=== PATIENT | male | born 1950 | race Caucasian/White ===

== ENCOUNTER 2018-02-02 09:32 | Emergency (ER) | payer MEDICARE, OTHER ==
[2018-02-02 09:43] VITALS: BP 150/88; PULSE 65; RESP 18; TEMP 98.1
[2018-02-02] MEDS ORDERED: GELATIN SPONGE,ABSORB (SMALL) 1 EACH SPONGE TOPICAL STA (10:08)
--- NOTE | 2018-02-02 10:26 | ED ---
Wound/Laceration HPI - General Source: patient, RN notes reviewed Mode of arrival: ambulatory Limitations: no limitations <Jp Cardona - Last Filed: 02/02/18 10:20> <Rolo Jain - Last Filed: 02/02/18 10:37> - General Chief Complaint: Wound/Laceration Stated Complaint: finger lac on tablesaw Time Seen by Provider: 02/02/18 10:05 - History of Present Illness Initial Comments: This a 67-year-old male presents emergency Department chief complaint of laceration to his right hand third and fourth digit. Patient states that he was using a table saw and states that he grabbed a board causing a laceration to his finger. He states that his tetanus is up-to-date within last 5 years. He states that there is no skin noted on his third digit. Patient has full range of motion no paresthesias. (Jp Cardona) - Related Data Previous Rx's Medication Instructions Recorded Cephalexin [Keflex] 500 mg PO Q6HR #28 cap 02/02/18 Allergies Allergy/AdvReac Type Severity Reaction Status Date / Time No Known Allergies Allergy Verified 02/02/18 10:03 Review of Systems ROS Other: All systems not noted in ROS Statement are negative. <Jp Cardona - Last Filed: 02/02/18 10:20> ROS Other: All systems not noted in ROS Statement are negative. <Rolo Jain - Last Filed: 02/02/18 10:37> ROS Statement: Those systems with pertinent positive or pertinent negative responses have been documented in the HPI. Past Medical History Past Medical History: No Reported History History of Any Multi-Drug Resistant Organisms: None Reported Past Surgical History: Back Surgery Past Psychological History: No Psychological Hx Reported Smoking Status: Never smoker Past Alcohol Use History: Rare Past Drug Use History: None Reported <Jp Cardona - Last Filed: 02/02/18 10:20> General Exam Limitations: no limitations General appearance: alert, in no apparent distress Head exam: Present: atraumatic, normocephalic, normal inspection Respiratory exam: Present: normal lung sounds bilaterally. Absent: respiratory distress, wheezes, rales, rhonchi, stridor Cardiovascular Exam: Present: regular rate, normal rhythm, normal heart sounds. Absent: systolic murmur, diastolic murmur, rubs, gallop, clicks Extremities exam: Present: other (Right hand third digit there is an angulated avulsion laceration over the distal tip that does partially involving the nail no exposed bone no active bleeding, fourth digit there is 2 superficial lacerations) Skin exam: Present: warm, dry <Jp Cardona - Last Filed: 02/02/18 10:20> Course <Jp Cardona - Last Filed: 02/02/18 10:20> <Rolo Jain - Last Filed: 02/02/18 10:37> Vital Signs 02/02/18 09:40 Temperature 98.1 F Pulse Rate 65 Respiratory 18 Rate Blood Pressure 150/88 O2 Sat by Pulse 99 Oximetry - Reevaluation(s) Reevaluation #1: 02/02/18 10:37 PG supervision: I did personally do a [id number] evaluation the patient. I did assess the wound I do agree with the assessment and plan. I did review the imaging. There is evidence of injury to the right middle finger secondary to a table saw injury. (Rolo Jain) Medical Decision Making <Jp Cardona - Last Filed: 02/02/18 10:20> <Rolo Jain - Last Filed: 02/02/18 10:37> - Medical Decision Making 67-year-old male present emergency from for right hand laceration. He has an avulsion of the skin and distal portion of his finger there is no laceration to be repaired. X-ray was obtained. Gelfoam was applied patient was started on antibiotics and follow-up with return parameters were discussed. (Jp Cardona) Disposition Is patient prescribed a controlled substance at d/c from ED?: No Time of Disposition: 10:26 <Jp Cardona - Last Filed: 02/02/18 10:20> <Rolo Jain - Last Filed: 02/02/18 10:37> Clinical Impression: Fingertip avulsion, Finger laceration Disposition: HOME SELF-CARE Condition: Stable Instructions: Finger Laceration (ED), Skin Avulsion (ED) Additional Instructions: Please return to the Emergency Department if symptoms worsen or any other concerns. Prescriptions: Cephalexin [Keflex] 500 mg PO Q6HR #28 cap Referrals: Dennis Argueta MD [Primary Care Provider] - 1-2 days Jarred Spicer DO [Doctor of Osteopathic Medicine] - 1-2 days
[2018-02-02] MEDS ORDERED: ceFAZolin 1,000 MG VIAL IM STA (10:27)
--- NOTE | 2018-02-02 10:33 | XR ---
EXAMINATION TYPE: XR finger RT DATE OF EXAM: 02/02/2018 COMPARISON: NONE HISTORY: 67-year-old male with pain after table saw cut TECHNIQUE: 3 views coned-down right middle finger FINDINGS: There is a table saw injury to the radial sided tip of the middle finger with associated obliquely or iented amputation of the radial sided and distal tuft of the distal phalanx. Tiny more fistula bone f ragments are present in the vicinity. Additional small laceration at the tip of the fourth digit. Und erlying osteoarthritic changes within the DIP and to a lesser extent within the PIP joints. IMPRESSION: Laceration to the tip of the third digit with macerated distal aspect of the third phalangeal tuft se condary to table saw cut. Small laceration to the tip of the fourth digit as well. Underlying osteoarthritic changes.
== END 2018-02-02 11:04 | disposition home or self-care (01) ==
LOC: EC 09:32
DX: S61.212A Laceration without foreign body of right middle finger without damage to nail, initial encounter (principal); S61.214A Laceration without foreign body of right ring finger without damage to nail, initial encounter; W31.2XXA Contact with powered woodworking and forming machines, initial encounter; Y93.89 Activity, other specified
CPT/HCPCS: 73140; 99283; 96372; J0690

== ENCOUNTER 2019-09-26 06:02 | Emergency (ER) | payer MEDICARE, OTHER ==
[2019-09-26 06:10] VITALS: RESP 18
[2019-09-26] MEDS ORDERED: SODIUM CHLORIDE 0.9% 1,000 ML IV STA (06:11)
[2019-09-26] MEDS ORDERED: ONDANSETRON 4 MG/2 ML VIAL IVP STA (06:11)
[2019-09-26] MEDS ORDERED: SODIUM CHLORIDE 0.9% 500 ML 500 ML IV STA (06:11)
[2019-09-26] MEDS ORDERED: KETOROLAC 30 MG/ML 1 ML VIAL IVP STA (06:12)
--- NOTE | 2019-09-26 06:18 | ED ---
General Adult HPI - General Chief complaint: Back Pain/Injury Stated complaint: Possible kidney stone Time Seen by Provider: 09/26/19 06:10 Source: patient, RN notes reviewed Mode of arrival: ambulatory Limitations: no limitations - History of Present Illness Initial comments: This a 68-year-old male presents emergency Department chief complaint of sudden onset right flank pain. Patient states started around midnight he states that he really makes the pain feel better or worse at this time. He states that he cannot get comfortable. Patient states that he's had some nausea and vomiting secondary to intense pain. Patient denies any change in bowel habits no difficulty urinating no hematuria. Patient has no history kidney stones no prior abdominal surgeries. Patient unable take any current pain secondary to nausea and vomiting. - Related Data Previous Rx's Medication Instructions Recorded Cephalexin [Keflex] 500 mg PO Q6HR #28 cap 02/02/18 Ibuprofen [Motrin] 600 mg PO Q8HR PRN #20 tab 09/26/19 Ondansetron Odt [Zofran Odt] 4 mg PO Q8HR PRN #10 tab 09/26/19 Tamsulosin [Flomax] 0.4 mg PO DAILY #7 cap 09/26/19 Allergies Allergy/AdvReac Type Severity Reaction Status Date / Time No Known Allergies Allergy Verified 02/02/18 10:03 Review of Systems ROS Statement: Those systems with pertinent positive or pertinent negative responses have been documented in the HPI. ROS Other: All systems not noted in ROS Statement are negative. Past Medical History Past Medical History: No Reported History History of Any Multi-Drug Resistant Organisms: None Reported Past Surgical History: Back Surgery Additional Past Surgical History / Comment(s): Knee surgery. Past Psychological History: No Psychological Hx Reported Smoking Status: Never smoker Past Alcohol Use History: Rare Past Drug Use History: None Reported General Exam Limitations: no limitations General appearance: alert, in no apparent distress Head exam: Present: atraumatic, normocephalic, normal inspection Respiratory exam: Present: normal lung sounds bilaterally. Absent: respiratory distress, wheezes, rales, rhonchi, stridor Cardiovascular Exam: Present: regular rate, normal rhythm, normal heart sounds. Absent: systolic murmur, diastolic murmur, rubs, gallop, clicks GI/Abdominal exam: Present: soft, normal bowel sounds. Absent: distended, tenderness (no change in reported pain on the right with palpation), guarding, rebound, rigid Back exam: Absent: CVA tenderness (R), CVA tenderness (L) Course Vital Signs 09/26/19 06:06 Temperature 98 F Pulse Rate 68 Respiratory 18 Rate Blood Pressure 145/85 O2 Sat by Pulse 97 Oximetry Medical Decision Making - Medical Decision Making 68-year-old male presented for sudden onset right flank pain. Patient has obstructive 6 mm right ureteral calculi. Patient pain is improved at this time there is no evidence of urinary tract infection. Patient be discharged advised to follow-up with urology. Return parameters were discussed. - Lab Data Result diagrams: 09/26/19 06:21 09/26/19 06:21 Lab Results 09/26/19 09/26/19 09/26/19 Range/Units 06:21 06:21 08:10 WBC 13.8 H (3.8-10.6) k/uL RBC 5.27 (4.30-5.90) m/uL Hgb 15.6 (13.0-17.5) gm/dL Hct 45.8 (39.0-53.0) % MCV 86.9 (80.0-100.0) fL MCH 29.6 (25.0-35.0) pg MCHC 34.0 (31.0-37.0) g/dL RDW 13.4 (11.5-15.5) % Plt Count 220 (150-450) k/uL Neutrophils % 90 % Lymphocytes % 5 % Monocytes % 3 % Eosinophils % 1 % Basophils % 0 % Neutrophils # 12.4 H (1.3-7.7) k/uL Lymphocytes # 0.7 L (1.0-4.8) k/uL Monocytes # 0.4 (0-1.0) k/uL Eosinophils # 0.1 (0-0.7) k/uL Basophils # 0.0 (0-0.2) k/uL Sodium 137 (137-145) mmol/L Potassium 4.4 (3.5-5.1) mmol/L Chloride 105 (98-107) mmol/L Carbon Dioxide 22 (22-30) mmol/L Anion Gap 10 mmol/L BUN 27 H (9-20) mg/dL Creatinine 1.20 (0.66-1.25) mg/dL Est GFR (CKD-EPI)AfAm 73 (>60 ml/min/1.73 sqM) Est GFR (CKD-EPI)NonAf 63 (>60 ml/min/1.73 sqM) Glucose 138 H (74-99) mg/dL Calcium 9.8 (8.4-10.2) mg/dL Total Bilirubin 0.8 (0.2-1.3) mg/dL AST 25 (17-59) U/L ALT 25 (4-49) U/L Alkaline Phosphatase 84 (38-126) U/L Total Protein 7.9 (6.3-8.2) g/dL Albumin 4.6 (3.5-5.0) g/dL Amylase 77 (30-110) U/L Lipase 71 (23-300) U/L Urine Color Yellow Urine Appearance Clear (Clear) Urine pH 6.0 (5.0-8.0) Ur Specific [place] 1.026 (1.001-1.035) Urine Protein Negative (Negative) Urine Glucose (UA) Negative (Negative) Urine Ketones Negative (Negative) Urine Blood Moderate H (Negative) Urine Nitrite Negative (Negative) Urine Bilirubin Negative (Negative) Urine Urobilinogen <2.0 (<2.0) mg/dL Ur Leukocyte Esterase Negative (Negative) Urine RBC 22 H (0-5) /hpf Urine WBC 4 (0-5) /hpf Hyaline Casts 4 H (0-2) /lpf Urine Mucus Rare H (None) /hpf Disposition Clinical Impression: Right ureteral calculus Disposition: HOME SELF-CARE Condition: Stable Instructions (If sedation given, give patient instructions): Kidney Stones (ED) Additional Instructions: Please return to the Emergency Department if symptoms worsen or any other concerns. Prescriptions: Tamsulosin [Flomax] 0.4 mg PO DAILY #7 cap Ibuprofen [Motrin] 600 mg PO Q8HR PRN #20 tab PRN Reason: Pain Ondansetron Odt [Zofran Odt] 4 mg PO Q8HR PRN #10 tab PRN Reason: Nausea Is patient prescribed a controlled substance at d/c from ED?: No Referrals: Dennis Argueta MD [Primary Care Provider] - 1-2 days Pedro Garza MD [STAFF PHYSICIAN] - 1-2 days Time of Disposition: 08:40
[2019-09-26 06:25] LABS: Basophils % (A) 0 %; Eosinophils # (A) 0.1 k/uL (0-0.7); Eosinophils % (A) 1 %; HCT 45.8 % (39.0-53.0); HGB 15.6 gm/dL (13.0-17.5); Lymphocytes # (A) 0.7 k/uL (1.0-4.8); Lymphocytes % (A) 5 %; MCH 29.6 pg (25.0-35.0); MCV 86.9 fL (80.0-100.0); Mean Platelet Volume 7.4; Monocytes # (A) 0.4 k/uL (0-1.0); Monocytes % (A) 3 %; Neutrophils # (A) 12.4 k/uL (1.3-7.7); Neutrophils % (A) 90 %; Platelet Count 220 k/uL (150-450); RBC 5.27 m/uL (4.30-5.90); RDW 13.4 % (11.5-15.5); WBC 13.8 k/uL (3.8-10.6)
[2019-09-26 06:34] LABS: Albumin 4.6 g/dL (3.5-5.0); Calcium 9.8 mg/dL (8.4-10.2); Potassium 4.4 mmol/L (3.5-5.1); Total Bilirubin 0.8 mg/dL (0.2-1.3); Total Protein 7.9 g/dL (6.3-8.2)
[2019-09-26] MEDS ORDERED: HYDROmorphone 0.5 MG/0.5 ML SYRINGE IVP STA (06:37)
[2019-09-26] MEDS ORDERED: TAMSULOSIN 0.4 MG CAP.ER.24H PO STA (06:54)
--- NOTE | 2019-09-26 07:43 | CT ---
EXAM: CT Abdomen and Pelvis Without Intravenous Contrast CLINICAL HISTORY: ITS.REASON CT Reason: flank pain, kidney stone suspected TECHNIQUE: Axial computed tomography images of the abdomen and pelvis without intravenous contrast. DLP 391.[address] exam was performed using one or more of the following dose reduction techniques: automated exposure control, adjustment of the mA and/or kV according to patient size, and/or use of iterative reconstruction technique. COMPARISON: No relevant prior studies available. FINDINGS: Lung bases: Unremarkable. No mass. No consolidation. ABDOMEN: Liver: Unremarkable. Gallbladder and bile ducts: Unremarkable. No calcified stones. No ductal dilation. Pancreas: Unremarkable. No ductal dilation. Spleen: Unremarkable. No splenomegaly. Adrenals: Unremarkable. No mass. Kidneys and ureters: 6 mm calculus located at the right proximal ureter. Mild upstream dilatation of the collecting system to include right renal enlargement and perinephric stranding/fluid. Stomach and bowel: Unremarkable. No obstruction. No mucosal thickening. PELVIS: Appendix: No findings to suggest acute appendicitis. Bladder: Unremarkable. No stones. Reproductive: Unremarkable as visualized. ABDOMEN and PELVIS: Intraperitoneal space: Unremarkable. No free air. No significant fluid collection. Bones/joints: No acute fracture. No dislocation. Soft tissues: Unremarkable. Vasculature: Unremarkable. No abdominal aortic aneurysm. Lymph nodes: Unremarkable. No enlarged lymph nodes. IMPRESSION: 6 mm calculus located at the right proximal ureter. Mild upstream dilatation of the collecting system to include right renal enlargement and perinephric stranding/fluid. These findings are likely obstructive but would correlate clinically to exclude any superimposed infection.
[2019-09-26 08:28] LABS: Appearance,Urine Clear (Clear); Bilirubin,Urine Negative (Negative); Blood,Urine Moderate (Negative); Color,Urine Yellow; Glucose,Urine (UA) Negative (Negative); Hyaline Casts,Urine 4 /lpf (0-2); Ketones,Urine Negative (Negative); Leukocyte Esterase,Urine Negative (Negative); Mucus,Urine Rare /hpf; Nitrite,Urine Negative (Negative); Protein,Urine Negative (Negative); RBC,Urine 22 /hpf (0-5); Specific Gravity,Urine 1.026 (1.001-1.035); Urobilinogen,Urine <2.0 mg/dL (<2.0); WBC,Urine 4 /hpf (0-5)
[2019-09-26] MEDS ORDERED: ACET/COD 300 MG/30 MG STARTER PACK 6 TAB BTL PO STA (08:36)
[2019-09-26 08:52] VITALS: BP 154/89; PULSE 72; TEMP 97.4
== END 2019-09-26 08:51 | disposition home or self-care (01) ==
LOC: EC 06:02
DX: N20.1 Calculus of ureter (principal)
CPT/HCPCS: 36415; 80053; 82150; 83690; 85025; 81001; 74176; 99284; 96374; 96375 ×2; 96361; J2405; J1885; J1170

== ENCOUNTER 2019-10-08 05:59 | Day surgery (SDC) | payer MEDICARE, OTHER ==
[2019-10-05 09:00] VITALS: BMI 27.3
--- NOTE | 2019-10-05 15:11 | P.HPIHPCON ---
History of Present Illness H&P Date: 10/08/19 Chief Complaint: Right-sided ureteral stone Mr wagoner this 68-year-old male with history of a 6 mm right-sided proximal ureteral stone. He's failed medical expulsive therapy. Discussed with him the option of ureteroscopy versus shockwave lithotripsy. He elected to proceed with right-sided ureteroscopy. I discussed with him the risk which includes but not limited to bleeding infection injury to the ureter. I also discussed with him risk from anesthesia which includes but not limited to heart attack, stroke, blood clots and even loss of life. He understood all the risk and agreed to proceed with right-sided ureteroscopy Consent for Procedure: I have explained the operation/procedure to the patient, including the risks, benefits, side effects, alternative therapies (including not receiving the proposed treatment or service), the likelihood of the patient achieving his/her goals, and potential recuperation problems for the procedure/sedation/analgesia, as well as any blood products, if indicated. I also explained to the patient the risks, benefits and side effects of the alternatives, as well as the risks related to not receiving the proposed procedure, care, treatment, or services. Past Medical History Past Medical History: No Reported History Additional Past Medical History / Comment(s): Hx of severe R flank pain/ kidney stone. History of Any Multi-Drug Resistant Organisms: None Reported Past Surgical History: Back Surgery Additional Past Surgical History / Comment(s): Knee surgery/ Laminectomy Past Anesthesia/Blood Transfusion Reactions: No Reported Reaction Smoking Status: Never smoker - Past Family History Mother Family Medical History: Cancer Additional Family Medical History / Comment(s): Pancreatic cancer Medications and Allergies Home Medications Medication Instructions Recorded Confirmed Type Cephalexin [Keflex] 500 mg PO BID 10/05/19 10/05/19 History Allergies Allergy/AdvReac Type Severity Reaction Status Date / Time No Known Allergies Allergy Verified 10/05/19 08:33 Surgical - Exam - General well developed, well nourished, no distress - Respiratory normal expansion, normal respiratory effort - Abdomen Abdomen: soft, non tender, no distended Assessment and Plan Assessment: 68-year-old male with history of right-sided proximal stone -OR for right-sided ureteroscopy, holmium laser lithotripsy, stone basketing and stent placement
[2019-10-08] MEDS ORDERED: LACTATED RINGERS 1,000 ML IV SCH (06:13)
[2019-10-08] MEDS ORDERED: HYDROmorphone 0.5 MG/0.5 ML SYRINGE IVP PRN (06:13)
[2019-10-08] MEDS ORDERED: MIDAZOLAM 2 MG/2 ML VIAL IV PRN (06:13)
[2019-10-08] MEDS ORDERED: DEXAMETHASONE SOD PHOSPHATE 10 MG/ML 1 ML VIAL IV ONE (06:13)
[2019-10-08] MEDS ORDERED: ONDANSETRON 4 MG/2 ML VIAL IVP ONE (06:13)
[2019-10-08] MEDS ORDERED: LIDOCAINE 1% (10MG/ML) FOR IV START INTRADERMA ONE (07:00)
[2019-10-08 07:12] VITALS: RESP 16
--- NOTE | 2019-10-08 07:18 | XR ---
EXAMINATION TYPE: XR KUB DATE OF EXAM: 10/08/2019 6:11 AM CLINICAL HISTORY: Right-sided nephrolithiasis TECHNIQUE: Single supine KUB image of the abdomen is obtained. COMPARISON: CT dated 10/08/2019. FINDINGS: In addition to multiple phleboliths within the pelvis there is a 4 mm rounded density that could represent a ureteral calculus just above the ureterovesicular junction as a phlebolith was not seen in this location on the prior CT of 09/26/2019. Multiple other phleboliths are seen within the pe lvis. The right renal shadow is partially obscured by bowel gas although no discrete calculi are seen . No calculi are seen overlying the left renal shadow. Moderate to severe degenerative change of the spine. No dilated large or small bowel. Moderate degenerative changes of the hips. IMPRESSION: 4 mm calculus just above the right ureterovesicular junction could represent progression of the right ureteral calculus in comparison to the prior CT of 09/26/2019 representing phleboliths.
[2019-10-08] MEDS ORDERED: ePHEDrine SULFATE/0.9% NACL/PF 50 MG/5 ML SYRINGE IV ONE (07:25)
[2019-10-08] MEDS ORDERED: MIDAZOLAM 2 MG/2 ML VIAL ONE (07:25)
[2019-10-08] MEDS ORDERED: PROPOFOL 10 MG/ML 20 ML VIAL IV ONE (07:25)
[2019-10-08] MEDS ORDERED: fentaNYL (PF) 50 MCG/ML 2 ML AMP ONE (07:25)
[2019-10-08] MEDS ORDERED: NEOSTIGMINE 1 MG/ML 10 ML VIAL ONE (07:25)
[2019-10-08] MEDS ORDERED: LIDOCAINE 1% INJ 10MG/ML (20 ML MDV) ONE (07:25)
[2019-10-08] MEDS ORDERED: ROCURONIUM BROMIDE 10 MG/ML 5 ML VIAL IV ONE (07:25)
[2019-10-08] MEDS ORDERED: GLYCOPYRROLATE 0.2 MG/ML 2 ML VIAL ONE (07:25)
[2019-10-08] MEDS ORDERED: SUCCINYLCHOLINE CHLORIDE 100 MG/5 ML SYR IV ONE (07:25)
[2019-10-08] MEDS ORDERED: IOPAMIDOL-370 50ML BTL MISCELLANE ONE (08:00)
[2019-10-08 08:44] VITALS: TEMP 98
--- NOTE | 2019-10-08 08:47 | FL ---
EXAMINATION TYPE: FL urography retrograde DATE OF EXAM: 10/08/2019 COMPARISON: NONE HISTORY: Right-sided ureteral calculus. Retrograde cystoscopy. Fluoroscopic documentation. TECHNIQUE: Fluoroscopy. FINDINGS: Fluoroscopic guidance was provided during procedure performed by Dr. Rojas. A total of 3 7 seconds of fluoroscopic time was utilized during the procedure and 2 spot images was acquired demon strating retrograde filling of the right collecting system. IMPRESSION: As Above.
--- NOTE | 2019-10-08 08:52 | P.OP ---
Date of Procedure: 10/08/19 Preoperative Diagnosis: right ureteral calculi Postoperative Diagnosis: same Procedure(s) Performed: Cystoscopy, right reterograde pyelogram, Ureteroscopy, stone basketting, ureteral balloon dilation and stent placement Implants: 4.5 Fr X 26 cm stent on string Anesthesia: DM Surgeon: Daljit Rojas Estimated Blood Loss (ml): 5 Pathology: other (ureteral stone) Condition: stable Disposition: PACU Indications for Procedure: Mr wagoner this 68-year-old male with history of a 6 mm right-sided proximal ureteral stone. He's failed medical expulsive therapy. Discussed with him the option of ureteroscopy versus shockwave lithotripsy. He elected to proceed with right-sided ureteroscopy. I discussed with him the risk which includes but not limited to bleeding infection injury to the ureter. I also discussed with him risk from anesthesia which includes but not limited to heart attack, stroke, blood clots and even loss of life. He understood all the risk and agreed to proceed with right-sided ureteroscopy Operative Findings: right distal ureteral stone Description of Procedure: The patient was brought to the operating room, general anesthesia was induced. He was prepped and draped in sterile fashion placed in a dorsal lithotomy position. A cystoscope fitted with a 22 Fr sheath was inserted per urethra. Cystoscopy was performed showed no abnormality within the bladder. The right ureteral orifice was intubated with a sensor wire. The semirigid ureteroscope was inserted, and I attempted to advance the scope past the right ureteral orfice, but the ureteral orfice was narrowed and did not accommodate the scope. The ureteroscope was withdrawn with wire in place. Next the cystoscope was backloaded over the wire. A 12 Fr ureteral balloon dilator was advanced over the wire and into the distal ureter. The ureteral orfice was dilated using the balloon dilator under fluoroscopy. the balloon dilator was removed with wire in place. Next a semi-rigid ureteroscope was advanced up the distal ureter. a stone was encountered in distal ureter. The stone was grasped and removed intact. Reterograde pyelogram was performed after stone removal which showed no filling defect or contrast extrav. Next a 4.5Fr X 26cm stent was advanced over the wire. Proximal curl was visualized on fluoroscopy and distal curl was visualized on cystoscopy. Stent was left on string Bladder was emptied at the end of case. Patient was taken to recovery in stable condition
[2019-10-08 09:57] VITALS: BP 154/83; PULSE 64
== END 2019-10-08 10:00 | disposition home or self-care (01) ==
LOC: OR 05:59
PROVIDERS: ATTEND Urology
DX: N20.1 Calculus of ureter (principal); Z98.890 Other specified postprocedural states; Z80.0 Family history of malignant neoplasm of digestive organs
CPT/HCPCS: 82365; 74420; 74018; 52352; 52332; C2625; C1758; J2250; J1100; J2710; J0690; J2405; J2001; J3010; J0330; J2704; Q9967

== ENCOUNTER → 2021-07-22 | Outpatient (CLI) | payer MEDICARE ==
[2021-07-22 11:46] LABS: Basophils # (A) 0.1 k/uL (0-0.2); Basophils % (A) 1 %; Eosinophils # (A) 0.3 k/uL (0-0.7); Eosinophils % (A) 6 %; HGB 15.6 gm/dL (13.0-17.5); Lymphocytes # (A) 1.3 k/uL (1.0-4.8); Lymphocytes % (A) 23 %; MCH 30.5 pg (25.0-35.0); MCHC 33.2 g/dL (31.0-37.0); MCV 91.9 fL (80.0-100.0); Mean Platelet Volume 7.5; Monocytes # (A) 0.3 k/uL (0-1.0); Monocytes % (A) 5 %; Neutrophils # (A) 3.4 k/uL (1.3-7.7); Neutrophils % (A) 62 %; Platelet Count 237 k/uL (150-450); RBC 5.11 m/uL (4.30-5.90); RDW 13.2 % (11.5-15.5); WBC 5.5 k/uL (3.8-10.6)
[2021-07-22 12:07] LABS: Potassium 4.6 mmol/L (3.5-5.1)
== END | disposition home or self-care (01) ==
LOC: LABPAT 09:35
PROVIDERS: ATTEND Orthopaedic Surgery
DX: M75.42 Impingement syndrome of left shoulder (principal)
CPT/HCPCS: 36415; 80051; 85025; 93005

== ENCOUNTER 2021-08-06 05:51 | Day surgery (SDC) | payer MEDICARE, OTHER ==
[2021-07-31 09:50] VITALS: BMI 25.1
--- NOTE | 2021-08-05 15:59 | HP ---
HISTORY AND PHYSICAL REASON FOR ADMISSION: Surgery scheduled 08/06/2021. HISTORY OF PRESENT ILLNESS: Vernon Smith is a 62-year-old gentleman seen with progressive left shoulder pain. We discussed options for treatment. He elected to proceed with left shoulder arthroscopy. Consent was obtained. PAST MEDICAL HISTORY: Noncontributory. PAST SURGICAL HISTORY: Bilateral knee arthroscopy, lumbar spine surgery. MEDICATIONS: Advil. ALLERGIES: None. SOCIAL HISTORY: Denies tobacco use. PHYSICAL EVALUATION OF THE LEFT SHOULDER: Flexion is 120 degrees, abduction is 90 degrees, external rotation is 30 degrees with weakness and pain. Tenderness along the anterolateral acromion rotator cuff insertion site. Impingement positive at 90 degrees. Cross-body adduction sign is positive. Drop-arm sign is positive. Distal neurovascular exam is intact. RADIOGRAPHS: Radiographs of the left shoulder revealed a type 2 acromion, evidence for acromioclavicular joint osteoarthritis and cystic changes of the tuberosity. MRI left shoulder partial rotator cuff tear. IMPRESSION: 1. Left shoulder impingement with partial rotator cuff tear. 2. Left shoulder acromioclavicular joint osteoarthritis. PLAN: Left shoulder arthroscopy, subacromial decompression, arthroscopic rotator cuff repair, Angelo procedure and debridement. Surgery scheduled for 08/06/2021. MMODL / IJN: [id number] /
[2021-08-06] MEDS ORDERED: MIDAZOLAM 2 MG/2 ML VIAL IV PRN (06:11)
[2021-08-06] MEDS ORDERED: DEXAMETHASONE SOD PHOSPHATE 4 MG/ML 1 ML VIAL IV ONE (06:11)
[2021-08-06] MEDS ORDERED: LIDOCAINE 1% (10MG/ML) FOR IV START INTRADERMA PRN (06:11)
[2021-08-06] MEDS ORDERED: LACTATED RINGERS 1,000 ML IV SCH (06:11)
[2021-08-06] MEDS ORDERED: ONDANSETRON 4 MG/2 ML VIAL IVP PRN (07:00)
[2021-08-06] MEDS ORDERED: HYDROmorphone 0.5 MG/0.5 ML SYRINGE IVP PRN (07:00)
[2021-08-06] MEDS ORDERED: fentaNYL (PF) 50 MCG/ML 2 ML AMP IV ONE (07:05)
[2021-08-06] MEDS ORDERED: SUCCINYLCHOLINE CHLORIDE 100 MG/5 ML SYR IV ONE (07:25)
[2021-08-06] MEDS ORDERED: PROPOFOL 10 MG/ML 20 ML VIAL IV ONE (07:25)
[2021-08-06] MEDS ORDERED: ePHEDrine 50 MG/ML 1 ML AMP ONE (07:25)
[2021-08-06] MEDS ORDERED: LIDOCAINE 1% INJ 10MG/ML (20 ML MDV) ONE (07:25)
[2021-08-06] MEDS ORDERED: ROPIVACAINE 5 MG/ML 30 ML VIAL ONE (07:25)
[2021-08-06] MEDS ORDERED: fentaNYL (PF) 50 MCG/ML 2 ML AMP ONE (07:25)
[2021-08-06] MEDS ORDERED: PHENYLEPHRINE-0.9% NACL SYG 1,000 MCG/10 ML SYRINGE ONE (07:25)
[2021-08-06 09:32] VITALS: TEMP 96.8
--- NOTE | 2021-08-06 09:32 | P.OP ---
Date of Procedure: 08/06/21 Preoperative Diagnosis: Left shoulder impingement Postoperative Diagnosis: 1. Left shoulder rotator cuff tear 2. Left shoulder impingement 3. Left shoulder acromioclavicular joint osteoarthritis 4. Left shoulder partial long head biceps tendon tear Procedure(s) Performed: 1. Left shoulder arthroscopic rotator cuff repair 2. Left shoulder arthroscopic subacromial decompression 3. Left shoulder arthroscopic Angelo procedure 4. Left shoulder arthroscopic biceps tenotomy Implants: 44.75 Arthrex swivel lock anchors Anesthesia: GETA, regional (Interscalene block) Surgeon: Kamar Diaz Electromagnet Crane Operator #1: Colin Deluca Estimated Blood Loss (ml): 11 Pathology: none sent Condition: stable Disposition: PACU Indications for Procedure: 70-year-old gentleman seen with progressive left shoulder pain. After having treatment options discussed, he elected to proceed with arthroscopy. Operative Findings: See description of procedure Description of Procedure: Patient underwent an interscalene block by department of anesthesia. The patient was then taken to the operative suite. The patient underwent a general anesthetic by the department of anesthesia. The patient was placed into a lateral position and secured. There was appropriate padding of the bony prominence. Left shoulder was then prepped and draped in normal sterile orthopedic fashion. We placed the extremity in 10 pounds of longitudinal traction. A posterior incision was now made for a posterior working portal site. The trocar and cannula were inserted into the glenohumeral joint. Arthroscopy wa s initiated. Spinal needle was now inserted anteriorly, to ascertain the anterior working portal site. An incision was now made in that area, a trocar was inserted followed by a probe. There was significant partial tearing long head biceps tendon. The labrum appeared stable. There were grade 1 chondromalacia changes about the glenohumeral joint with no tears. There was an obvious large rotator cuff tear I could visualize from the glenohumeral joint. I performed an arthroscopic biceps tenotomy. I again probed the labrum and it was found to be stable. Instruments were now removed from glenohumeral joint. Utilizing the posterior working portal site, the trocar and cannula were inserted into the subacromial space. Arthroscopy initiated. I made an incision 2 fingerbreadths lateral to the acromion. I introduced my trocar followed by my ArthroCare ablator. I now began ablating thick subacromial bursal tissue, which exposed the undersurface of the anterior acromion. There was diminished subacromial space. There was a very prominent anterior acromion. A motorized bur was introduced and a subacromial decompression was performed. I also excised some osteophytes off the inferior aspect of the distal clavicle. The AC joint was visualized and noted to be fairly arthritic. The motorized bur was introduced in the anterior portal site and a Angelo procedure was performed without difficulty, decompressing the AC joint nicely. I turned my attention to the rotator cuff. There was a 2. 53 cm rotator cuff tear. I debrided the margins getting down to stable tendon tissue. I introduced my motorized bur and abraded the footprint area, getting some petechial bleeding. I now made an accessory portal site off the lateral aspect of the acromion. I punched 2 holes medial for medial row fixation with the assistance of Colin VALENCIA carefully tapping the punch with a mallet as I held the punch and the camera. I now introduced both anchors into the pre-punched holes and Colin VALENCIA tapped them with the mallet as I held anchors and the camera. Colin VALENCIA now screwed the anchors in place a while I held the anchor guide and camera. All 8 limbs of suture were now passed through good bites of rotator cuff tendon. I now punched 2 holes for lateral row fixation again I held the punch and camera while Colin VALENCIA used a mallet to tap in the punch. We now passed sutures through both anchors and individually I introduced the anchors into the pre- punch holes I held the anchor guide in position with one hand holding the camera with the other hand while Colin VALENCIA tensioned the sutures and screwed in the anchors one at a time. All residual suture limbs were now clipped. We had good compression of the tendon along the entire footprint. Instruments now removed from the portal sites. All portal sites were approximated with nylon suture. Sterile dressings were applied followed by a shoulder immobilizer. Colin VALENCIA assisted in this complex case. The patient was awakened, transferred to a bed, and taken to recovery in stable condition.
[2021-08-06 09:38] VITALS: RESP 16
--- NOTE | 2021-08-06 10:05 | P.ANPRN ---
Procedure Note - Anesthesia - Nerve Block Performed Left Interscalene Time Out Performed: Yes (07:04) Date of Procedure: 08/06/21 Procedure Start Time: : Procedure Stop Time: :14 Location of Patient: PreOp Indication: Acute Post-Operative Pain, Requested by Surgeon (Dr Burton) Sedation Type: Sedate with meaningful contact maintained Preparation: Sterile Prep Position: Supine Catheter: None Needle Types: Pajunk Needle Gauge: Other (see comment) (22g) Ultrasound used to visualize needle placement: Yes Ultrasound used to observe medication spread: Yes Injectate: 0.5% Ropivacaine (see comment for volume) (20cc) Blood Aspirated: No Pain Paresthesia on Injection Noted: No Resistance on Injection: Normal Image Stored and Saved: Yes Events: Uneventful and Well Tolerated
[2021-08-06 11:15] VITALS: BP 146/90; PULSE 71
== END 2021-08-06 11:47 | disposition home or self-care (01) ==
LOC: OR 05:51
PROVIDERS: ATTEND Orthopaedic Surgery
DX: S46.112A Strain of muscle, fascia and tendon of long head of biceps, left arm, initial encounter (principal); M19.012 Primary osteoarthritis, left shoulder; M75.102 Unspecified rotator cuff tear or rupture of left shoulder, not specified as traumatic
CPT/HCPCS: 29826; 29827; 64415; 76942; C1713 ×2; C1894; J2250; J1100; J0690; J2405; J2001; J3010; J2795; J2370; J0330; J2704

== ENCOUNTER 2023-11-25 14:37 | Inpatient (IN) | payer MEDICARE, OTHER ==
--- NOTE | 2023-11-25 14:49 | ED ---
General Adult HPI - General Chief complaint: Chest Pain Stated complaint: chest pain Time Seen by Provider: 11/25/23 14:41 Source: patient, EMS, RN notes reviewed Mode of arrival: EMS Limitations: no limitations - History of Present Illness Initial comments: Patient is a pleasant 73-year-old male presenting to the emergency department with concerns for chest discomfort. Patient has had several episodes over the past 2 to 3 days. Symptoms usually occur with exertion. Discomfort feels like pressure in the chest and was severe today prior to arrival. Patient is symptom-free following nitroglycerin by EMS. No history of similar symptoms previously. No associated dyspnea. Patient did have some sweating and nausea today. No calf pain or swelling. - Related Data Home Medications Medication Instructions Recorded Confirmed No Known Home Medications 11/25/23 11/25/23 Allergies Allergy/AdvReac Type Severity Reaction Status Date / Time No Known Allergies Allergy Verified 11/25/23 15:21 Review of Systems ROS Statement: Those systems with pertinent positive or pertinent negative responses have been documented in the HPI. ROS Other: All systems not noted in ROS Statement are negative. Constitutional: Denies: fever Eyes: Denies: eye pain ENT: Denies: ear pain Respiratory: Denies: cough, dyspnea Cardiovascular: Reports: as per HPI, chest pain Gastrointestinal: Reports: nausea. Denies: abdominal pain Musculoskeletal: Denies: back pain Skin: Denies: rash Neurological: Denies: weakness Past Medical History Past Medical History: No Reported History Additional Past Medical History / Comment(s): Hx of severe R flank pain/ kidney stone. History of Any Multi-Drug Resistant Organisms: None Reported Past Surgical History: Back Surgery Additional Past Surgical History / Comment(s): Knee surgery/ Laminectomy Past Anesthesia/Blood Transfusion Reactions: No Reported Reaction Past Psychological History: No Psychological Hx Reported Past Alcohol Use History: None Reported Past Drug Use History: None Reported - Past Family History Mother Family Medical History: Cancer Additional Family Medical History / Comment(s): Pancreatic cancer. General Exam Limitations: no limitations General appearance: alert, in no apparent distress Head exam: Present: normocephalic Eye exam: Present: normal appearance Neck exam: Present: normal inspection Respiratory exam: Present: normal lung sounds bilaterally. Absent: chest wall tenderness Cardiovascular Exam: Present: regular rate, normal rhythm, normal heart sounds Expanded Peripheral pulses: 2+: Radial (R), Radial (L), Posterior Tibialis (R), Posterior Tibialis (L) GI/Abdominal exam: Present: soft. Absent: tenderness, pulsatile mass Extremities exam: Present: normal inspection. Absent: pedal edema, calf tenderness Neurological exam: Present: alert Psychiatric exam: Present: normal affect, normal mood Skin exam: Present: normal color Course Vital Signs 11/25/23 14:40 Pulse Rate 77 Respiratory 18 Rate Blood Pressure 175/105 O2 Sat by Pulse 100 Oximetry EKG Findings - EKG Results: EKG: interpreted by ERMD, sinus rhythm, normal axis, normal QRS, normal ST/T Medical Decision Making - Medical Decision Making Was pt. sent in by a medical professional or institution (, PA, QUALITY ASSURANCE SUPERVISOR, urgent care, hospital, or assisted...) When possible be specific @ -No Did you speak to anyone other than the patient for history (EMS, parent, family, police, friend...)? What history was obtained from this source @ -EMS provides history of meds provided en route. Did you review nursing and triage notes (agree or disagree)? Why? @ -I reviewed and agree with nursing and triage notes Were old charts reviewed (outside hosp., previous admission, EMS record, old EKG, old radiological studies, urgent care reports/EKG's, assisted records)? Report findings @ -No old charts were reviewed Differential Diagnosis (chest pain, altered mental status, abdominal pain women, abdominal pain men, vaginal bleeding, weakness, fever, dyspnea, syncope, headache, dizziness, GI bleed, back pain, seizure, CVA, palpatations, mental health, musculoskeletal)? @ -Differential Chest Pain: Stable Angina, Unstable Angina, STEMI, NSTEMI Aortic Dissection, Pneumothorax, Musculoskeletal, Esophageal Spasm GERD, Cholecystitis, Pancreatitis, Zoster, this is not meant to be an all-inclusive list. EKG interpreted by me (3pts min.). @ -As above X-rays interpreted by me (1pt min.). @ -Chest x-ray without obvious acute abnormality or mediastinal widening. CT interpreted by me (1pt min.). @ -None done U/S interpreted by me (1pt. min.). @ -None done What testing was considered but not performed or refused? (CT, X-rays, U/S, labs)? Why? @ -None What meds were considered but not given or refused? Why? @ -None Did you discuss the management of the patient with other professionals (professionals i.e. , PA, QUALITY ASSURANCE SUPERVISOR, lab, RT, psych nurse, licensed master social worker, military lawyer, teacher, light armored reconnaissance officer, director of casework department)? Give summary @ -Case discussed with Dr. Jacques with cardiology who will consult. Case also d iscussed with Dr. Najera, who will admit covering hospital call Was smoking cessation discussed for >3mins.? @ -No Was critical care preformed (if so, how long)? @ -32 minutes critical care time Were there social determinants of health that impacted care today? How? (Homelessness, low income, unemployed, alcoholism, drug addiction, transportation, low edu. Level, literacy, decrease access to med. care, residential, rehab)? @ -No Was there de-escalation of care discussed even if they declined (Discuss DNR or withdrawal of care, Hospice)? DNR status @ -No What co-morbidities impacted this encounter? (DM, HTN, Smoking, COPD, CAD, Cancer, CVA, ARF, Chemo, Hep., AIDS, mental health diagnosis, sleep apnea, morbid obesity)? @ -None Was patient admitted / discharged? Hospital course, mention meds given and route, prescriptions, significant lab abnormalities, going to OR and other pertinent info. @ -Patient reevaluated and remains symptom-free. Patient and family are updated on results and plan. Patient will be admitted. Heparin started. Admission orders written. Consults placed. Undiagnosed new problem with uncertain prognosis? @ -No Drug Therapy requiring intensive monitoring for toxicity (Heparin, Nitro, Insulin, Cardizem)? @ -IV heparin drip will need monitoring Were any procedures done? @ -No Diagnosis/symptom? @ -Non-ST elevation myocardial infarction Acute, or Chronic, or Acute on Chronic? @ -Acute Uncomplicated (without systemic symptoms) or Complicated (systemic symptoms)? @ -Complicated with elevation of troponin Side effects of treatment? @ -No Exacerbation, Progression, or Severe Exacerbation? @ -No Poses a threat to life or bodily function? How? (Chest pain, [place], [place], pneumonia, PE, COPD, DKA, ARF, appy, cholecystitis, CVA, Diverticulitis, Homicidal, Suic idal, threat to staff... and all critical care pts) @ -Potential threat to cardiac function - Lab Data Result diagrams: 11/25/23 14:44 11/25/23 14:44 Lab Results 11/25/23 11/25/23 11/25/23 Range/Units 14:44 14:44 14:44 WBC 10.2 (3.8-10.6) k/uL RBC 5.02 (4.30-5.90) m/uL Hgb 15.0 (13.0-17.5) gm/dL Hct 45.1 (39.0-53.0) % MCV 89.9 (80.0-100.0) fL MCH 29.9 (25.0-35.0) pg MCHC 33.3 (31.0-37.0) g/dL RDW 13.7 (11.5-15.5) % Plt Count 206 (150-450) k/uL MPV 7.5 Neutrophils % 73 % Lymphocytes % 16 % Monocytes % 4 % Eosinophils % 6 % Basophils % 0 % Neutrophils # 7.4 (1.3-7.7) k/uL Lymphocytes # 1.6 (1.0-4.8) k/uL Monocytes # 0.4 (0-1.0) k/uL Eosinophils # 0.6 (0-0.7) k/uL Basophils # 0.0 (0-0.2) k/uL PT 11.1 (10.0-12.5) sec INR 1.0 (<1.2) APTT 24.0 (22.0-30.0) sec D-Dimer 0.35 (<0.60) mg/L FEU Sodium 138 (137-145) mmol/L Potassium 3.6 (3.5-5.1) mmol/L Chloride 106 (98-107) mmol/L Carbon Dioxide 23 (22-30) mmol/L Anion Gap 9 mmol/L BUN 12 (9-20) mg/dL Creatinine 0.95 (0.66-1.25) mg/dL Est GFR (CKD-EPI)AfAm >90 (>60 ml/min/1.73 sqM) Est GFR (CKD-EPI)NonAf 81 (>60 ml/min/1.73 sqM) Glucose 183 H (74-99) mg/dL Calcium 8.9 (8.4-10.2) mg/dL Magnesium 1.7 (1.6-2.3) mg/dL Total Bilirubin 0.8 (0.2-1.3) mg/dL AST 25 (17-59) U/L ALT 26 (4-49) U/L Alkaline Phosphatase 98 (38-126) U/L Troponin I (0.000-0.034) ng/mL Total Protein 7.0 (6.3-8.2) g/dL Albumin 4.0 (3.5-5.0) g/dL 11/25/23 Range/Units 14:44 WBC (3.8-10.6) k/uL RBC (4.30-5.90) m/uL Hgb (13.0-17.5) gm/dL Hct (39.0-53.0) % MCV (80.0-100.0) fL MCH (25.0-35.0) pg MCHC (31.0-37.0) g/dL RDW (11.5-15.5) % Plt Count (150-450) k/uL MPV Neutrophils % % Lymphocytes % % Monocytes % % Eosinophils % % Basophils % % Neutrophils # (1.3-7.7) k/uL Lymphocytes # (1.0-4.8) k/uL Monocytes # (0-1.0) k/uL Eosinophils # (0-0.7) k/uL Basophils # (0-0.2) k/uL PT (10.0-12.5) sec INR (<1.2) APTT (22.0-30.0) sec D-Dimer (<0.60) mg/L FEU Sodium (137-145) mmol/L Potassium (3.5-5.1) mmol/L Chloride (98-107) mmol/L Carbon Dioxide (22-30) mmol/L Anion Gap mmol/L BUN (9-20) mg/dL Creatinine (0.66-1.25) mg/dL Est GFR (CKD-EPI)AfAm (>60 ml/min/1.73 sqM) Est GFR (CKD-EPI)NonAf (>60 ml/min/1.73 sqM) Glucose (74-99) mg/dL Calcium (8.4-10.2) mg/dL Magnesium (1.6-2.3) mg/dL Total Bilirubin (0.2-1.3) mg/dL AST (17-59) U/L ALT (4-49) U/L Alkaline Phosphatase (38-126) U/L Troponin I 0.208 H* (0.000-0.034) ng/mL Total Protein (6.3-8.2) g/dL Albumin (3.5-5.0) g/dL Critical Care Time Critical Care Time: Yes Disposition Clinical Impression: Acute non-ST elevation myocardial infarction (NSTEMI) Disposition: ADMITTED IP TO THIS HOSP Condition: Serious Is patient prescribed a controlled substance at d/c from ED?: No Referrals: None,Stated [Primary Care Provider] - 1-2 days Time of Disposition: 16:02
[2023-11-25] MEDS: NITROGLYCERIN OINT 1 INCH/GM PACKET TOPICAL STA (14:53)
[2023-11-25] MEDS: ASPIRIN 81 MG PO STA (14:58)
[2023-11-25 14:59] LABS: Basophils % (A) 0 %; Eosinophils # (A) 0.6 k/uL (0-0.7); Eosinophils % (A) 6 %; HCT 45.1 % (39.0-53.0); Lymphocytes # (A) 1.6 k/uL (1.0-4.8); Lymphocytes % (A) 16 %; MCH 29.9 pg (25.0-35.0); MCHC 33.3 g/dL (31.0-37.0); MCV 89.9 fL (80.0-100.0); Mean Platelet Volume 7.5; Monocytes # (A) 0.4 k/uL (0-1.0); Monocytes % (A) 4 %; Neutrophils # (A) 7.4 k/uL (1.3-7.7); Neutrophils % (A) 73 %; Platelet Count 206 k/uL (150-450); RBC 5.02 m/uL (4.30-5.90); RDW 13.7 % (11.5-15.5); WBC 10.2 k/uL (3.8-10.6)
[2023-11-25 15:10] LABS: ALT 26 U/L (4-49); AST 25 U/L (17-59); African American GFR (CKD) >90 (>60 ml/min/1.73 sqM); Alkaline Phosphatase 98 U/L (38-126); Anion Gap 9 mmol/L; Blood Urea Nitrogen 12 mg/dL (9-20); Calcium 8.9 mg/dL (8.4-10.2); Carbon Dioxide 23 mmol/L (22-30); Chloride 106 mmol/L (98-107); Glucose 183 mg/dL (74-99); Magnesium 1.7 mg/dL (1.6-2.3); Non-African American GFR(CKD) 81 (>60 ml/min/1.73 sqM); Potassium 3.6 mmol/L (3.5-5.1); Sodium 138 mmol/L (137-145); Total Bilirubin 0.8 mg/dL (0.2-1.3)
[2023-11-25 15:17] LABS: Prothrombin Time 11.1 sec (10.0-12.5)
--- NOTE | 2023-11-25 16:08 | XR ---
EXAMINATION TYPE: XR chest 2V DATE OF EXAM: 11/25/2023 COMPARISON: NONE HISTORY: Chest pain TECHNIQUE: Frontal and lateral views of the chest are obtained. FINDINGS: There is moderate cardiomegaly. There is possible mild cephalization of the pulmonary vasculature ind icating mild CHF. There is no lung consolidation or abnormal interstitial opacity. There is no pleural effusion or pneumothorax. The osseous structures are intact IMPRESSION: Possibly mild CHF described above.
[2023-11-25] MEDS: HEPARIN SOD,PORK IN 0.45% NACL 25,000 UNIT in 0.45% NACL 1 250ML.BAG IV SCH (16:47)
[2023-11-25] MEDS: HEPARIN SODIUM 1,000 UN/ML (10ML VL) IV ONE (16:48)
[2023-11-25] MEDS: NITROGLYCERIN OINT 1 INCH/GM PACKET TOPICAL SCH (17:17)
--- NOTE | 2023-11-25 18:03 | P.HPIM ---
History of Present Illness H&P Date: 11/25/23 Patient is a 73-year-old male with no significant past medical history presenting with chest pain. It started about couple of hours before he presented to the hospital. It is mostly right-sided, acute onset, /, did have some palpitations. Nausea, vomiting diaphoresis, abdominal pain, lightheadedness, urinary or bowel complaints. Did have some shortness of breath accompanied with chest pain. Most of his pain is now resolved. He denies seeing any doctors recently, and has yearly physical at prior department which has been normal in the past. He denies any smoking, occasional alcohol use, denies any illicit drug use. No significant family history of heart attacks or strokes. In the ED, temperature was 77, respiratory rate 18, blood pressure 175/105 down trended to 131/91, saturating at 96% on room air. WBC 10.2, hemoglobin 15, potassium 3.6, creatinine 0.95, magnesium 1.7, troponin 0.208. EKG independently interpreted, shows normal sinus rhythm with nonspecific ST-T wave changes. Chest x-ray independently interpreted, shows some interstitial opacities. Patient being admitted for acute non-STEMI, started on heparin drip. Cardiology consulted. Pertinent positives and negatives as discussed in HPI, a complete review of systems was performed and all other systems are negative. Patient seen and examined at bedside. Vital signs reviewed General: nontoxic, no distress, appears at stated age Derm: warm, dry Head: atraumatic, normocephalic, symmetric Eyes: EOMI, no lid lag, anicteric sclera, pupils equal round reactive to light ENT: Nose and ears atraumatic Neck: No thyromegaly, supple Mouth: no lip lesion, mucus membranes moist Cardiovascular: S1S2 reg, no murmur, no edema Lungs: clear to auscultation bilateral, no rhonchi, no rales, no wheeze, no a ccessory muscle use Abdominal: soft, nontender to palpation, no guarding, no appreciable organomega ly Ext: no gross muscle atrophy, muscle strength muscle strength 5 out of 5 in all 4 extremities, no contractures Neuro: CN II-XII grossly intact Psych: Alert, oriented, appropriate affect Assessment/Plan: Active: Acute NSTEMI Hypertension - Continue heparin drip, monitor APTT, monitor for bleeding - Continue to trend troponin, continue telemetry monitoring - Aspirin 81 mg, atorvastatin 40 mg, also started on metoprolol 25 twice daily - Also on nitroglycerin topical every 6 hours 1 inch - Cardiology consulted, pending recommendations - Echocardiogram pending - Lipid panel, A1c, TSH pending The patient is admitted with an anticipated greater than 2 midnight stay as inpatient status for evaluation of acute NSTEMI. Surrogate decision-maker: Spouse CODE STATUS: Full code DVT prophylaxis: Heparin drip Anticipated discharge date: Pending clinical course Anticipated discharge place: Pending clinical course A total of 55 minutes was spent on the care of this complex patient more than 5 0% of the time was spent in counseling and care coordination. Past Medical History Past Medical History: No Reported History Additional Past Medical History / Comment(s): Hx of severe R flank pain/ kidney stone. History of Any Multi-Drug Resistant Organisms: None Reported Past Surgical History: Back Surgery Additional Past Surgical History / Comment(s): Knee surgery/ Laminectomy Past Anesthesia/Blood Transfusion Reactions: No Reported Reaction Past Psychological History: No Psychological Hx Reported Past Alcohol Use History: None Reported Past Drug Use History: None Reported - Past Family History Mother Family Medical History: Cancer Additional Family Medical History / Comment(s): Pancreatic cancer. Medications and Allergies Home Medications Medication Instructions Recorded Confirmed Type No Known Home Medications 11/25/23 11/25/23 History Allergies Allergy/AdvReac Type Severity Reaction Status Date / Time No Known Allergies Allergy Verified 11/25/23 15:21 Physical Exam Vitals: Vital Signs Pulse Resp BP Pulse Ox 11/25/23 16:43 67 18 131/91 96 11/25/23 14:40 77 18 175/105 100 Intake and Output 11/25/23 11/25/23 11/25/23 06:59 14:59 22:59 Other: Weight 70.307 kg Results CBC & Chem 7: 11/25/23 14:44 11/25/23 14:44 Labs: Abnormal Lab Results - Last 24 Hours (Table) 11/25/23 11/25/23 Range/Units 14:44 14:44 Glucose 183 H (74-99) mg/dL Troponin I 0.208 H* (0.000-0.034) ng/mL
[2023-11-25] MEDS: METOPROLOL TARTRATE 25 MG TAB PO SCH (20:13)
[2023-11-25] MEDS: ATORVASTATIN 40 MG TAB PO SCH (20:13)
[2023-11-26] MEDS: HEPARIN SODIUM 1,000 UN/ML (10ML VL) IV PRN (00:06)
[2023-11-26] MEDS: NITROGLYCERIN SL TABS 0.4 MG TAB SUBLINGUAL PRN (04:53)
[2023-11-26 06:13] LABS: Basophils # (A) 0.1 k/uL (0-0.2); Basophils % (A) 1 %; Eosinophils % (A) 11 %; HCT 42.7 % (39.0-53.0); HGB 14.5 gm/dL (13.0-17.5); Lymphocytes # (A) 1.9 k/uL (1.0-4.8); Lymphocytes % (A) 20 %; MCH 30.4 pg (25.0-35.0); MCV 89.4 fL (80.0-100.0); Mean Platelet Volume 8.1; Monocytes # (A) 0.5 k/uL (0-1.0); Monocytes % (A) 5 %; Neutrophils # (A) 5.7 k/uL (1.3-7.7); Neutrophils % (A) 61 %; Platelet Count 200 k/uL (150-450); RBC 4.78 m/uL (4.30-5.90); RDW 14.2 % (11.5-15.5); WBC 9.3 k/uL (3.8-10.6)
[2023-11-26 06:52] LABS: African American GFR (CKD) >90 (>60 ml/min/1.73 sqM); Anion Gap 7 mmol/L; Blood Urea Nitrogen 15 mg/dL (9-20); Calcium 8.9 mg/dL (8.4-10.2); Carbon Dioxide 26 mmol/L (22-30); Chloride 108 mmol/L (98-107); Glucose 103 mg/dL (74-99); Non-African American GFR(CKD) 81 (>60 ml/min/1.73 sqM); Potassium 3.8 mmol/L (3.5-5.1); Sodium 141 mmol/L (137-145)
[2023-11-26] MEDS ORDERED: NITROGLYCERIN SL TABS 0.4 MG TAB SUBLINGUAL PRN ×2 (07:30→12:04)
[2023-11-26] MEDS ORDERED: ALPRAZolam 0.25 MG TAB PO PRN (07:30)
[2023-11-26] MEDS ORDERED: ALPRAZolam 0.5 MG TAB PO PRN (07:30)
[2023-11-26] MEDS: ATORVASTATIN 80 MG TAB PO STA (07:52)
[2023-11-26] MEDS: ASPIRIN 325 MG TAB PO STA (07:52)
[2023-11-26] MEDS: ASPIRIN 81 MG PO SCH (08:18)
[2023-11-26] MEDS ORDERED: ASPIRIN 325 MG TAB PO SCH (09:00)
[2023-11-26] MEDS: SODIUM CHLORIDE 0.9% 1,000 ML in EMPTY BAG 1 BAG IV SCH ×2 (09:06→13:26)
--- NOTE | 2023-11-26 09:32 | P.CRDCN ---
History of Present Illness History of present illness: HISTORY OF PRESENT ILLNESS: This is a 73-year-old male with no significant past medical history. 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 We have been asked to see the patient in consultation for non-STEMI. Patient examined at the bedside in the emergency room. Patient states he has been having chest pain on and off for the past 3 days. He states yesterday he had another episode of chest discomfort in the middle of his chest along with diaphoresis and shortness of breath. Patient presented to the hospital for further evaluation. Patient was found to have elevated troponins and was started on IV heparin. The patient also states he had another episode of chest pain at 5 AM this morning. He currently denies chest pain at the time of examination. Patient denies any history of coronary artery disease. He is a non-smoker. He denies a history of hypertension, hyperlipidemia, or diabetes to his knowledge. Blood pressures have been elevated with a systolic range between 195312. DIAGNOSTICS: - EKG reveals sinus mechanism with incomplete right bundle branch block. No signs of acute ischemia. - Chest xray with mild CHF. Moderate cardiomegaly. Mild cephalization of the pulmonary vasculature and indicating mild CHF. - Laboratory data: WBC 9.3. Hemoglobin 14.5. Platelet count 200. D-dimer 0.35. Sodium 141. Potassium 3.8. BUN 15. Creatinine 0.95. Troponin 0.208. 0.246. 0.254. TSH 1.330. - Current home cardiac medications include none. REVIEW OF SYSTEMS: At the time of my exam: CONSTITUTIONAL: Denies fever or chills. HEENT: Denies blurred vision, vision changes, or eye pain. Denies hemoptysis CARDIOVASCULAR: Denies chest pain. Denies orthopnea. Denies PND. Denies palpitations RESPIRATORY: Denies shortness of breath. GASTROINTESTINAL: Denies abdominal pain. Denies nausea or vomiting. HEMATOLOGIC: Denies bleeding disorders. GENITOURINARY: Denies any blood in urine. SKIN: Denies pruitis. Denies rash. PHYSICAL EXAM: VITAL SIGNS: Reviewed. GENERAL: Well-developed in no acute distress. HEENT: Head is normocephalic. Pupils are equal, round. Sclerae anicteric. Mucous membranes of the mouth are moist. Neck supple. No JVD or thyromegaly LUNGS: Respirations even and unlabored. Lungs essentially clear to auscultation bilaterally. HEART: Regular rate and rhythm. S1 and S2 heard. ABDOMEN: Soft. Nondistended. Nontender. EXTREMITIES: Normal range of motion. No clubbing or cyanosis. Peripheral pulses intact. No lower extremity edema NEUROLOGIC: Awake and alert. Oriented x 3. ASSESSMENT: NSTEMI Hypertension PLAN: Obtain 2D echo to assess cardiac structure and function Continue IV heparin Continue aspirin 81 mg daily and atorvastatin 40 mg at night. Lipid panel pending. LDL goal less than 70. Patient has been started on metoprolol tartrate 25 mg twice a day Add losartan 25 mg daily for optimal blood pressure control Patient to undergo cardiac catheterization with Dr. Lawrence today Further recommendations pending patient course Nurse practitioner note has been reviewed by physician. Signing provider agrees with the documented findings, assessment, and plan of care documented by BOTTLE TESTER as a scribe. Past Medical History Past Medical History: No Reported History Additional Past Medical History / Comment(s): Hx of severe R flank pain/ kidney stone. History of Any Multi-Drug Resistant Organisms: None Reported Past Surgical History: Back Surgery Additional Past Surgical History / Comment(s): Knee surgery/ Laminectomy, LEFT SHOULDER REPAIR Past Anesthesia/Blood Transfusion Reactions: Previous Problems w/ Anesthesia Additional Past Anesthesia/Blood Transfusion Reaction / Comment(s): AFTER BACK SURGERY HAD PROBLEM WITH MOOD Smoking Status: Former smoker - Past Family History Mother Family Medical History: Cancer Additional Family Medical History / Comment(s): Pancreatic cancer. Medications and Allergies Home Medications Medication Instructions Recorded Confirmed Type No Known Home Medications 11/25/23 11/25/23 History Allergies Allergy/AdvReac Type Severity Reaction Status Date / Time No Known Allergies Allergy Verified 11/25/23 15:21 Physical Exam Vitals: Vital Signs Temp Pulse Pulse Resp BP BP Pulse Ox 11/26/23 09:08 97.8 F 58 L 18 153/85 97 11/26/23 07:51 60 16 135/89 98 11/26/23 06:17 62 18 135/91 96 11/26/23 05:00 59 L 18 140/94 95 11/26/23 04:53 58 L 20 166/104 98 11/26/23 04:25 57 L 18 132/91 95 11/26/23 03:31 53 L 17 11/26/23 00:00 130/86 11/25/23 23:00 61 19 125/89 97 11/25/23 19:00 69 18 128/94 97 11/25/23 17:56 74 18 127/95 97 11/25/23 16:43 67 18 131/91 96 11/25/23 14:40 77 18 175/105 100 Intake and Output 11/25/23 11/26/23 11/26/23 22:59 06:59 14:59 Intake Total 129.541 14.764 Balance 129.541 14.764 Intake: Intake, IV Titration 129.541 14.764 Amount Heparin Sod,Pork in 0.45% 129.541 14.764 NaCl 25,000 unit In 0.45 % NaCl 1 250ml.bag @ 12 UNITS/KG/HR 8.437 mls/hr IV .Q24H [facility] [place] Rx#: [id number] Other: Weight 70.307 kg Results 11/26/23 05:31 11/26/23 05:31 Cardiac Enzymes 11/25/23 11/25/23 11/25/23 Range/Units 14:44 14:44 17:31 AST 25 (17-59) U/L Troponin I 0.208 H* 0.246 H* (0.000-0.034) ng/mL 11/25/23 Range/Units 22:07 AST (17-59) U/L Troponin I 0.254 H* (0.000-0.034) ng/mL Coagulation 11/25/23 11/25/23 11/26/23 Range/Units 14:44 22:07 05:31 PT 11.1 (10.0-12.5) sec APTT 24.0 34.9 H 51.9 H (22.0-30.0) sec CBC 11/25/23 11/26/23 Range/Units 14:44 05:31 WBC 10.2 9.3 (3.8-10.6) k/uL RBC 5.02 4.78 (4.30-5.90) m/uL Hgb 15.0 14.5 (13.0-17.5) gm/dL Hct 45.1 42.7 (39.0-53.0) % Plt Count 206 200 (150-450) k/uL Comprehensive Metabolic Panel 11/25/23 11/26/23 Range/Units 14:44 05:31 Sodium 138 141 (137-145) mmol/L Potassium 3.6 3.8 (3.5-5.1) mmol/L Chloride 106 108 H (98-107) mmol/L Carbon Dioxide 23 26 (22-30) mmol/L BUN 12 15 (9-20) mg/dL Creatinine 0.95 0.95 (0.66-1.25) mg/dL Glucose 183 H 103 H (74-99) mg/dL Calcium 8.9 8.9 (8.4-10.2) mg/dL AST 25 (17-59) U/L ALT 26 (4-49) U/L Alkaline Phosphatase 98 (38-126) U/L Total Protein 7.0 (6.3-8.2) g/dL Albumin 4.0 (3.5-5.0) g/dL Current Medications Generic Name Dose Route Start Last Admin Trade Name Freq PRN Reason Stop Dose Admin Alprazolam 0.25 mg 11/26/23 07:30 Alprazolam 0.25 Mg Tab PO Q6HR PRN Mild Anxiety Alprazolam 0.5 mg 11/26/23 07:30 Alprazolam 0.5 Mg Tab PO Q6HR PRN Moderate Anxiety Aspirin 81 mg 11/26/23 09:00 11/26/23 08:18 Aspirin 81 Mg PO Not Given DAILY ARA Atorvastatin Calcium 40 mg 11/25/23 21:00 11/25/23 20:13 Atorvastatin 40 Mg Tab PO 40 mg HS ARA Administration Heparin Sodium (Porcine) 0 unit 11/25/23 23:51 11/26/23 00:06 Heparin Sodium 1,000 Un/Ml (10ml Vl) IV 3,515.35 unit PER PROTOCOL PRN Administration Low PTT Protocol Heparin Sodium/Sodium Chloride 250 mls @ 8.437 mls/hr 11/25/23 16:15 11/26/23 07:56 25,000 unit/ Sodium Chloride IV 0 units/kg/hr .Q24H ARA 0 mls/hr Titration Protocol 12 UNITS/KG/HR Heparin Sodium (Porcine) 10, 1,001 mls @ 999 mls/hr 11/27/23 07:00 000 unit/ Sodium Chloride IRRIGATION 11/27/23 23:00 ONCE PRN INTRA-OP Heparin Sodium (Porcine) 2,500 250.5 mls @ 250 mls/hr 11/27/23 07:00 unit/ Sodium Chloride IRRIGATION 11/27/23 23:00 ONCE PRN INTRA-OP Sodium Chloride 1,000 ml/ IV 1,000 mls @ 70.307 mls/hr 11/26/23 07:30 11/26/23 09:06 Solution IV 70.307 mls/hr .[id number] ARA Administration 1 ML/KG/HR Metoprolol Tartrate 25 mg 11/25/23 21:00 11/25/23 20:13 Metoprolol Tartrate 25 Mg Tab PO 25 mg BID ARA Administration Nitroglycerin 0.4 mg 11/25/23 16:00 11/26/23 04:53 Nitroglycerin Sl Tabs 0.4 Mg Tab SUBLINGUAL 0.4 mg Q5M PRN Administration Chest Pain Nitroglycerin 1 inch 11/25/23 18:00 11/26/23 05:12 Nitroglycerin Oint 1 Inch/Gm Packet TOPICAL 1 inch Q6HR ARA Administration Nitroglycerin 0.4 mg 11/26/23 07:30 Nitroglycerin Sl Tabs 0.4 Mg Tab SUBLINGUAL Q5M PRN Chest Pain Intake and Output 11/25/23 11/26/23 11/26/23 22:59 06:59 14:59 Intake Total 129.541 14.764 Balance 129.541 14.764 Intake: Intake, IV Titration 129.541 14.764 Amount Heparin Sod,Pork in 0.45% 129.541 14.764 NaCl 25,000 unit In 0.45 % NaCl 1 250ml.bag @ 12 UNITS/KG/HR 8.437 mls/hr IV .Q24H [facility] [place] Rx#: [id number] Other: Weight 70.307 kg Patient Weight 11/27/23 06:59 Weight 70.307 kg 11/26/23 05:31 11/26/23 05:31
[2023-11-26] MEDS: IV FLUID CONTINUATION 1,000 ML IV ONE (10:16)
[2023-11-26] MEDS ORDERED: fentaNYL (PF) 50 MCG/ML 2 ML AMP ONE (10:30)
[2023-11-26] MEDS ORDERED: LIDOCAINE 1% INJ 10MG/ML (20 ML MDV) ONE (10:30)
[2023-11-26] MEDS ORDERED: HEPARIN SODIUM 1,000 UN/ML (10ML VL) ONE (10:30)
[2023-11-26] MEDS ORDERED: VERAPAMIL 2.5 MG/ML 2 ML AMP ONE (10:30)
[2023-11-26] MEDS: fentaNYL (PF) 50 MCG/1 ML VIAL IVP ONE (10:36)
[2023-11-26] MEDS: MIDAZOLAM 2 MG/2 ML VIAL IVP ONE ×2 (10:36→11:19)
[2023-11-26] MEDS: LIDOCAINE 1% INJ 10MG/ML (20 ML MDV) SQ ONE (10:39)
[2023-11-26] MEDS: VERAPAMIL SYRINGE (5 MG/10 ML) INTRAARTER ONE (10:42)
[2023-11-26] MEDS: HEPARIN SODIUM 1,000 UN/ML (10ML VL) IV ONE (10:48)
[2023-11-26] MEDS ORDERED: TICAGRELOR 90 MG TAB ONE (11:09)
[2023-11-26] MEDS: TICAGRELOR 90 MG TAB PO ONE (11:11)
[2023-11-26] MEDS ORDERED: niCARdipine 25 MG/10 ML VIAL ONE (11:38)
[2023-11-26] MEDS: IOPAMIDOL-370 100ML BTL INJ ONE ×2 (11:39→12:00)
[2023-11-26] MEDS: NITROGLYCERIN 1000MCG/10ML SYRINGE INTRACORON ONE (11:44)
[2023-11-26] MEDS: niCARdipine Syringe (1,000 mcg/10 mL) INTRACORON ONE (11:57)
[2023-11-26] MEDS ORDERED: RX INFO: IV CONTRAST WAS GIVEN 1 EACH MISC MISCELLANE PRN (12:04)
[2023-11-26] MEDS ORDERED: MAG HYDROX/AL HYDROX/SIMETH 30 ML CUP PO PRN (12:04)
[2023-11-26] MEDS ORDERED: ZOLPIDEM 5 MG TAB PO PRN (12:04)
[2023-11-26] MEDS ORDERED: ATROPINE SULFATE 0.1 MG/ML 10ML SYRINGE IV PRN (12:04)
[2023-11-26] MEDS: LOSARTAN 25 MG TAB PO SCH (12:52)
--- NOTE | 2023-11-26 13:18 | P.PN ---
Subjective Progress Note Date: 11/26/23 Hospital Course: 73-year-old male with no significant past medical history presenting with chest pain. In the ED, temperature was 77, respiratory rate 18, blood pressure 175/105 down trended to 131/91, saturating at 96% on room air. WBC 10.2, hemoglobin 15, potassium 3.6, creatinine 0.95, magnesium 1.7, troponin 0.208. EKG independently interpreted, shows normal sinus rhythm with nonspecific ST-T wave changes. Chest x-ray independently interpreted, shows some interstitial opacities. Patient being admitted for acute non-STEMI, started on heparin drip. Cardiology consulted. Subjective: Patient seen and examined at bedside. No acute events overnight. Did have some chest pain overnight, but now resolved. Pertinent positives and negatives as discussed above, a complete review of systems was performed and all other systems are negative. Vitals Signs Reviewed. General: Nontoxic, no distress, appears at stated age Derm: Warm, dry Head: Atraumatic, normocephalic, symmetric Eyes: EOMI, no lid lag, anicteric sclera Mouth: No lip lesion, mucus membranes moist Cardiovascular: S1S2 reg, no murmur Lungs: CTA bilateral, no rhonchi, no rales, no accessory muscle use Abdominal: Soft, nontender to palpation, no guarding, no appreciable organomegaly Ext: No gross muscle atrophy, no edema, no contractures Neuro: CN II-XI grossly intact, no focal neuro deficits Psych: Alert, oriented, appropriate affect Data Reviewed Today: Pertinent Labs: WBC 9.3, hemoglobin 14.5, platelet 200, APTT 51.9, potassium 3.8, creatinine 0.95, magnesium 2, troponin peaked at 0.254, A1c 5.9, TSH 1.33 Imaging: Assessment and Plan: Acute NSTEMI Hypertension Prediabetes, A1c 5.9 - Continue heparin drip, monitor APTT, monitor for bleeding - continue telemetry monitoring Cardiology note reviewed, also started on losartan 25 daily, pending cardiac cath today - Aspirin 81 mg, atorvastatin 40 mg, metoprolol 25 twice daily - Also on nitroglycerin topical every 6 hours 1 inch - Echocardiogram pending DVT ppx: Heparin drip Code status: Full code Anticipated discharge place: Pending clinical course Anticipated discharge time: Pending clinical course Objective - Vital Signs Vital signs: Vital Signs Temp 97.7 F 11/26/23 12:20 Pulse 57 L 11/26/23 12:50 Resp 20 11/26/23 12:50 BP 173/105 11/26/23 12:50 Pulse Ox 97 11/26/23 12:50 FiO2 Intake & Output 11/25/23 11/26/23 11/26/23 18:59 06:59 18:59 Intake Total 129.541 614.764 Balance 129.541 614.764 Weight 70.307 kg 70.307 kg Intake: IV 600 Intake, IV Titration 129.541 14.764 Amount Heparin Sod,Pork in 0.45% 129.541 14.764 NaCl 25,000 unit In 0.45 % NaCl 1 250ml.bag @ 12 UNITS/KG/HR 8.437 mls/hr IV .Q24H [facility] Rx#: [id number] - Labs CBC & Chem 7: 11/26/23 05:31 11/26/23 05:31 Labs: Abnormal Lab Results - Last 24 Hours (Table) 11/25/23 11/25/23 11/25/23 Range/Units 14:44 14:44 17:31 Eosinophils # (0-0.7) k/uL APTT (22.0-30.0) sec Chloride (98-107) mmol/L Glucose 183 H (74-99) mg/dL Troponin I 0.208 H* 0.246 H* (0.000-0.034) ng/mL 11/25/23 11/25/23 11/26/23 Range/Units 22:07 22:07 05:31 Eosinophils # (0-0.7) k/uL APTT 34.9 H 51.9 H (22.0-30.0) sec Chloride (98-107) mmol/L Glucose (74-99) mg/dL Troponin I 0.254 H* (0.000-0.034) ng/mL 11/26/23 11/26/23 Range/Units 05:31 05:31 Eosinophils # 1.0 H (0-0.7) k/uL APTT (22.0-30.0) sec Chloride 108 H (98-107) mmol/L Glucose 103 H (74-99) mg/dL Troponin I (0.000-0.034) ng/mL
--- NOTE | 2023-11-26 13:24 | CC ---
CARDIAC CATHETERIZATION REPORT INDICATIONS: Acute ous-XZ-wfvuxxc elevation TX. PROCEDURE NOTE: After obtaining informed consent, left heart catheterization and coronary angiogram were performed via the right radial artery using standard Naomy catheters. The patient tolerated the procedure well without any obvious immediate complications. The patient received moderate conscious sedation. Total sedation time was 18 minutes. Right radial artery access was obtained using Seldinger technique, 6-Indian sheath was placed. Catheters and wires were floated into the ascending aorta under fluoroscopic guidance. The patient received verapamil and heparin per protocol. FINDINGS: 1. Hemodynamics: Left ventricular end-diastolic pressure is 18 mm. There is no significant gradient across the aortic valve. 2. Left Ventriculogram: Left ventriculogram is not performed. 3. Angiographic Data: a.Right Coronary Artery: Right coronary artery is a large dominant vessel that shows an atherosclerotic plaque in the proximal RCA with a 20% to 30% stenosis. Left main coronary artery appears mildly calcified, divides into left anterior descending coronary artery and circumflex coronary artery. Circumflex coronary artery and its branches are free of significant stenosis. The proximal LAD shows a focal 95% stenosis with an area of plaque rupture. There is [id number] diffuse disease involving mid LAD. CONCLUSION: Severe proximal LAD stenosis. PLAN: Dr. Severino, the on-call awning erector will review the angiographic data and will proceed with angioplasty of the LAD. MMODL / IJN: [id number] /
[2023-11-26 13:42] LABS: Chol/HDL Ratio 4.32 Ratio
[2023-11-26 14:23] VITALS: BMI 22.8
--- NOTE | 2023-11-26 14:36 | P.PCN ---
Date of Procedure: 11/26/23 Operative Findings: PERCUTANEOUS CORONARY INTERVENTION Performing physician Jermaine Severino M.D. Procedure Performed: 1. Successful stenting of the proximal LAD using 4.0 x 23 mm Xience drug-eluting stent with an excellent angiographic results. 2. Successful stending of the mid LAD using 3.5 x 15 mm Xience drug-eluting stent with an excellent angiographic result. 3. Adjunctive use of intravascular ultrasound Indication: Acute non-ST elevation myocardial infarction. Please refer to diagnostic heart catheterization was performed by Dr. Lawrence earlier today Approach: Right radial artery Complications: None Level of Sedation: Moderate with a sedation length of 42 minutes Procedure Discussion: After obtaining informed consent the patient was brought to the cardiac Apartment Coordinator. The heart catheterization was performed by Dr. Lawrence and please refer to that. Anticoagulation was initiated using heparin. Subsequently I did engage the left main using JL 3.5 guiding catheter. After that I did wired the left circumflex using a run-through wire and the LAD using a whisper wire. After that I did intravascular ultrasound of the LAD which showed a diameter around 3.5 to 4 mm. Predilatation initially was attempted using 3.5 semicompliant balloon but the balloon continues to dislodge either antegrade or retrograde and at that point I decided to use 3.5 mm score flex balloon. Balloon angioplasty was performed using that balloon. Subsequently I deployed 4.0 x 23 mm stent where the stent was positioned under fluoroscopy guidance and deployed under fluoroscopy guidance. Postdilatation was performed using 4 mm noncompliant balloon. An angiogram was performed and showed possible edge dissection involving the distal edge of the stent. The lesion was also hemodynamically concerning. I decided to stent that segment where I deployed 3.5 x 15 mm stent where the second stent was deployed with about 2 mm overlap with the previous stent. The second stent was deployed under 12 carlyle for 20 seconds. Final angiogram was performed and showed an excellent angiographic results and the procedure was completed with no complication. Postprocedure Management: 1. Dual antiplatelet therapy using aspirin and Brilinta for 12 months 2. Aggressive cholesterol control 3. Risk factors modification
[2023-11-26] MEDS: ACETAMINOPHEN TAB 325 MG TAB PO PRN (17:02)
[2023-11-26] MEDS: TICAGRELOR 90 MG TAB PO SCH (19:39)
[2023-11-27 06:39] LABS: Mean Platelet Volume 7.7; Platelet Count 185 k/uL (150-450)
[2023-11-27 06:49] LABS: African American GFR (CKD) >90 (>60 ml/min/1.73 sqM); Anion Gap 9 mmol/L; Blood Urea Nitrogen 14 mg/dL (9-20); Calcium 8.4 mg/dL (8.4-10.2); Carbon Dioxide 19 mmol/L (22-30); Chloride 109 mmol/L (98-107); Glucose 98 mg/dL (74-99); Magnesium 1.8 mg/dL (1.6-2.3); Non-African American GFR(CKD) 87 (>60 ml/min/1.73 sqM); Sodium 137 mmol/L (137-145)
[2023-11-27] MEDS ORDERED: HEPARIN SODIUM,PORCINE (1 ML) 2,500 UNIT in SODIUM CHLORIDE 0.9% 250 ML IRRIGATION PRN (07:00)
[2023-11-27] MEDS ORDERED: HEPARIN SODIUM,PORCINE 10,000 UNIT in SODIUM CHLORIDE 0.9% 1,000 ML IRRIGATION PRN (07:00)
[2023-11-27] MEDS: ASPIRIN 81 MG PO SCH (08:19)
[2023-11-27 09:15] VITALS: RESP 20; TEMP 97.9
--- NOTE | 2023-11-27 09:46 | CA ---
Transthoracic Echo Report Name: Ziggy Smith Age: 73 Gender: M : 1950 Exam Date: 11/26/2023 14:54 Exam Location: [facility] Ht (in): 69 Wt (lb): 155 Ordering Physician: John Villa DO Attending/Referring Phys: Hot Patcher Nohemi Ho RDCS Procedure CPT: Indications: nstemi Cardiac Hx: Technical Quality: Technically difficult study Contrast 1: Definity Total Dose (mL): 2 Contrast 2: Total Dose (mL): MEASUREMENTS (Male / Female) Normal Values 2D ECHO LV Diastolic Diameter PLAX 4.3 cm 4.2 - 5.9 / 3.9 - 5.3 cm LV Systolic Diameter PLAX 2.5 cm IVS Diastolic Thickness 1.0 cm 0.6 - 1.0 / 0.6 - 0.9 cm LVPW Diastolic Thickness 1.0 cm 0.6 - 1.0 / 0.6 - 0.9 cm LV Relative Wall Thickness 0.5 RV Internal Dim ED PLAX 2.9 cm LVOT Diameter 2.1 cm LA Volume 42.8 cm??? 18 - 58 / 22 - 52 cm??? LA Volume Index 23.1 cm???/m??? 16 - 28 cm???/m??? DOPPLER AV Peak Velocity 132.2 cm/s AV Peak Gradient 7.0 mmHg AV Mean Velocity 90.1 cm/s AV Mean Gradient 3.6 mmHg AV Velocity Time Integral 29.5 cm LVOT Peak Velocity 102.1 cm/s LVOT Peak Gradient 4.2 mmHg LVOT Velocity Time Integral 22.7 cm LVOT Stroke Volume 75.2 cm??? LVOT Stroke Volume Index 40.6 ml/m??? LVOT Cardiac Index 2232.9 cm???/min???m??? AV Area Cont Eq vti 2.6 cm??? AV Area Cont Eq pk 2.6 cm??? MV Area PHT 3.8 cm??? Mitral E Point Velocity 76.3 cm/s Mitral A Point Velocity 75.1 cm/s Mitral E to A Ratio 1.0 MV Deceleration Time 201.3 ms PV Peak Velocity 73.2 cm/s PV Peak Gradient 2.1 mmHg FINDINGS Left Ventricle Left ventricular ejection fraction is estimated at 60-65%. Left ventricular cavity size normal. Left ventricular wall thickness normal. No obvious regional wall motion abnormalities. Right Ventricle Normal right ventricular size and function. Unable to estimate the right ventricular systolic pressure. Right Atrium Normal right atrial size. Left Atrium Normal left atrial size. Mitral Valve Structurally normal mitral valve. No evidence for mitral valve prolapse. No mitral stenosis. Trace mitral regurgitation. Aortic Valve Trileaflet aortic valve. No aortic valve stenosis or regurgitation. Tricuspid Valve Structurally normal tricuspid valve. No tricuspid stenosis. Trace tricuspid regurgitation. Pulmonic Valve Structurally normal pulmonic valve. No pulmonic stenosis. Trace pulmonic regurgitation. Pericardium No pericardial effusion. Aorta Normal size aortic root and proximal ascending aorta. CONCLUSIONS Normal left ventricular size wall motion systolic function Previewed by: Dr. Khurram Lawrence MD (Electronically Signed) Final Date: 27 November 2023 09:45
--- NOTE | 2023-11-27 09:55 | P.PN ---
Subjective Progress Note Date: 11/27/23 HISTORY OF PRESENT ILLNESS: This is a 73-year-old male with no significant past medical history. 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 We have been asked to see the patient in consultation for non-STEMI. Patient examined at the bedside in the emergency room. Patient states he has been having chest pain on and off for the past 3 days. He states yesterday he had another episode of chest discomfort in the middle of his chest along with diaphoresis and shortness of breath. Patient presented to the hospital for further evaluation. Patient was found to have elevated troponins and was started on IV heparin. The patient also states he had another episode of chest pain at 5 AM this morning. He currently denies chest pain at the time of examination. Patient denies any history of coronary artery disease. He is a non-smoker. He denies a history of hypertension, hyperlipidemia, or diabetes to his knowledge. Blood pressures have been elevated with a systolic range between [id number]. DIAGNOSTICS: - EKG reveals sinus mechanism with incomplete right bundle branch block. No signs of acute ischemia. - Chest xray with mild CHF. Moderate cardiomegaly. Mild cephalization of the pulmonary vasculature and indicating mild CHF. - Laboratory data: WBC 9.3. Hemoglobin 14.5. Platelet count 200. D-dimer 0.35. Sodium 141. Potassium 3.8. BUN 15. Creatinine 0.95. Troponin 0.208. 0.246. 0.254. TSH 1.330. - Current home cardiac medications include none. 11/26 Yesterday, patient underwent cardiac catheterization with Dr. Jaqcues which revealed severe proximal LAD stenosis. He subsequently underwent stenting of the proximal LAD by Dr. Severino. Patient is to be maintained on aspirin and Brilinta for 12 months. Echocardiogram reveals EF of 60 to 65%. Echocardiogram result reviewed reviewed with the patient. He denies any chest pain at this time. EKG was reviewed this morning with no acute changes. Right wrist shows no sign of hematoma. Repeat blood work reveals potassium 4, creatinine 0.87. PHYSICAL EXAM: VITAL SIGNS: Reviewed. GENERAL: Well-developed in no acute distress. HEENT: Head is normocephalic. Pupils are equal, round. Sclerae anicteric. Mucous membranes of the mouth are moist. Neck supple. No JVD or thyromegaly LUNGS: Respirations even and unlabored. Lungs essentially clear to auscultation bilaterally. HEART: Regular rate and rhythm. S1 and S2 heard. ABDOMEN: Soft. Nondistended. Nontender. EXTREMITIES: Normal range of motion. No clubbing or cyanosis. Peripheral pulses intact. No lower extremity edema NEUROLOGIC: Awake and alert. Oriented x 3. ASSESSMENT: NSTEMI Hypertension PLAN: Continue patient on atorvastatin 40 mg daily, Lopressor 25 mg twice daily, aspirin 81 mg daily, Brilinta 90 mg twice daily, losartan 25 mg daily, Nitrostat as needed, prescriptions have been sent to his pharmacy Patient is cleared for discharge and may follow-up with Dr. Bryant Lawrence in 1 week. Nurse practitioner note has been reviewed by physician. Signing provider agrees with the documented findings, assessment, and plan of care documented by TAX ASSESSOR as a scribe. Objective - Vital Signs Vital signs: Vital Signs Temp 98.4 F 11/27/23 03:27 Pulse 84 11/27/23 03:27 Resp 18 11/27/23 03:27 BP 125/71 11/27/23 03:27 Pulse Ox 93 L 11/27/23 03:27 FiO2 Intake & Output 11/26/23 11/27/23 11/27/23 18:59 06:59 18:59 Intake Total 1482.764 Output Total 300 Balance 1182.764 Weight 70.307 kg 84.3 kg Intake: IV 600 Intake, IV Titration 764.764 Amount Heparin Sod,Pork in 0.45% 14.764 NaCl 25,000 unit In 0.45 % NaCl 1 250ml.bag @ 12 UNITS/KG/HR 8.437 mls/hr IV .Q24H [facility] Rx#: [id number] Sodium Chloride 0.9% 1, 750 000 ml In Empty Bag 1 bag @ 75 mls/hr IV .[id number] [facility] Rx#:[id number] Oral 118 Output: Urine 300 - Labs CBC & Chem 7: 11/27/23 06:02 11/27/23 06:02 Labs: Abnormal Lab Results - Last 24 Hours (Table) 11/26/23 11/26/23 11/27/23 Range/Units 05:31 14:27 06:02 APTT 49.2 H (22.0-30.0) sec Chloride 109 H (98-107) mmol/L Carbon Dioxide 19 L (22-30) mmol/L Cholesterol 202.00 H (0.00-200.00) mg/dL LDL Cholesterol, Calc 134.0 H (0.0-131.0) mg/dL
--- NOTE | 2023-11-27 12:04 | P.DS ---
Providers Date of admission: 11/25/23 16:01 Expected date of discharge: 11/27/23 Attending physician: Hao Dias MD Consults: 11/25/23 16:00 Consult Physician Urgent Consulting Provider: Khurram Lawrence Consult Reason/Comments: nstemi Do you want consulting provider notified?: Already Contacted 11/26/23 12:04 Consult Physician Routine Consulting Provider: [facility] Consult Reason/Comments: Post Interventional Patient Do you want consulting provider notified?: Already Contacted Primary care physician: Stated None Hospital Course: Discharge Diagnosis: Acute NSTEMI Coronary artery disease status post stent Hypertension Prediabetes, A1c 5.9 Hospital Course: 73-year-old male with no significant past medical history presenting with chest pain. In the ED, temperature was 77, respiratory rate 18, blood pressure 175/105 down trended to 131/91, saturating at 96% on room air. WBC 10.2, hemoglobin 15, potassium 3.6, creatinine 0.95, magnesium 1.7, troponin 0.208. EKG independently interpreted, shows normal sinus rhythm with nonspecific ST-T wave changes. Chest x-ray independently interpreted, shows some interstitial opacities. Patient being admitted for acute non-STEMI, started on heparin drip. Cardiology consulted. Patient underwent cardiac cath, successful stenting of proximal and mid LAD. Echocardiogram showed LVEF 60 to 65%. Patient seen and examined at bedside. Vital signs reviewed and stable. General: Nontoxic, no distress, appears at stated age Derm: Warm, dry Head: Atraumatic, normocephalic, symmetric Eyes: EOMI, no lid lag, anicteric sclera Mouth: No lip lesion, mucus membranes moist Cardiovascular: S1S2 reg, no murmur Lungs: CTA bilateral, no rhonchi, no rales, no accessory muscle use Abdominal: Soft, nontender to palpation, no guarding, no appreciable organomegaly Ext: No gross muscle atrophy, no edema, no contractures Neuro: CN II-XI grossly intact, no focal neuro deficits Psych: Alert, oriented, appropriate affect A total of 33 minutes of time were spent preparing this complex discharge summary. Patient was discharged on 11/27/2023 at 1136. Patient Condition at Discharge: Serious Plan - Discharge Summary Discharge Rx Participant: No New Discharge Prescriptions: New Atorvastatin [Lipitor] 40 mg PO HS #90 tab Metoprolol Tartrate [Lopressor] 25 mg PO BID #180 tab Nitroglycerin Sl Tabs [Nitrostat] 0.4 mg SUBLINGUAL Q5M PRN #25 tab PRN Reason: Chest Pain Aspirin 81 mg PO DAILY tab Ticagrelor [Brilinta] 90 mg PO BID #180 tab Losartan [Cozaar] 25 mg PO DAILY #90 tab Discharge Medication List Aspirin 81 mg PO DAILY tab 11/27/23 [Rx] Atorvastatin [Lipitor] 40 mg PO HS #90 tab 11/27/23 [Rx] Losartan [Cozaar] 25 mg PO DAILY #90 tab 11/27/23 [Rx] Metoprolol Tartrate [Lopressor] 25 mg PO BID #180 tab 11/27/23 [Rx] Nitroglycerin Sl Tabs [Nitrostat] 0.4 mg SUBLINGUAL Q5M PRN #25 tab 11/27/23 [Rx] Ticagrelor [Brilinta] 90 mg PO BID #180 tab 11/27/23 [Rx] Follow up Appointment(s)/Referral(s): None,Stated [Primary Care Provider] - 1-2 days Khurram Lawrence MD [STAFF PHYSICIAN] - 1 Week Patient Instructions/Handouts: Heart Attack (DC) Activity/Diet/Wound Care/Special Instructions: Please see PCP and cardiology. Discharge Disposition: HOME SELF-CARE
[2023-11-27 12:31] VITALS: BP 145/85; PULSE 57
== END 2023-11-27 13:17 | disposition home or self-care (01) | DRG 322 ==
LOC: EC 14:37 → 1SOBS 16:01 → 3SCARD 17:02
PROVIDERS: ADMIT Student in an Organized Health Care Education/Training Program; ATTEND Student in an Organized Health Care Education/Training Program
DX: I21.4 Non-ST elevation (NSTEMI) myocardial infarction (principal); I25.10 Atherosclerotic heart disease of native coronary artery without angina pectoris; I10 Essential (primary) hypertension; Z87.442 Personal history of urinary calculi; I45.10 Unspecified right bundle-branch block; I11.0 Hypertensive heart disease with heart failure; I50.9 Heart failure, unspecified; Z79.899 Other long term (current) drug therapy
CPT/HCPCS: 36415; 71046; 80048; 80053; 80061; 83036; 83735; 84443; 84484; 85025; 85049; 85379; 85610; 85730; 92978; 93005; 93306; 93458; 96365; 96366; 96375; 99291

== ENCOUNTER 2023-11-29 06:39 | Emergency (ER) | payer MEDICARE, OTHER ==
--- NOTE | 2023-11-29 06:48 | ED ---
General Adult HPI - General Stated complaint: Blood vein swollen, Catheter complications Time Seen by Provider: 11/29/23 06:45 Source: patient, RN notes reviewed, old records reviewed Mode of arrival: ambulatory Limitations: no limitations - History of Present Illness Initial comments: 73-year-old male presents emergency department chief complaint of right arm pain, swelling. Patient states that he had a recent heart cath with right wrist also blood draws of his right AC states that he noticed some swelling, redness states that is throbbing throughout the night. Patient denies any fevers or chills no chest pain no shortness of breath. - Related Data Previous Rx's Medication Instructions Recorded Aspirin 81 mg PO DAILY tab 11/27/23 Atorvastatin [Lipitor] 40 mg PO HS #90 tab 11/27/23 Losartan [Cozaar] 25 mg PO DAILY #90 tab 11/27/23 Metoprolol Tartrate [Lopressor] 25 mg PO BID #180 tab 11/27/23 Nitroglycerin Sl Tabs [Nitrostat] 0.4 mg SUBLINGUAL Q5M PRN #25 tab 11/27/23 Ticagrelor [Brilinta] 90 mg PO BID #180 tab 11/27/23 Cephalexin [Keflex] 500 mg PO Q6HR #40 cap 11/29/23 Allergies Allergy/AdvReac Type Severity Reaction Status Date / Time No Known Allergies Allergy Verified 11/29/23 06:45 Review of Systems ROS Statement: Those systems with pertinent positive or pertinent negative responses have been documented in the HPI. ROS Other: All systems not noted in ROS Statement are negative. Past Medical History Past Medical History: No Reported History Additional Past Medical History / Comment(s): Hx of severe R flank pain/ kidney stone. History of Any Multi-Drug Resistant Organisms: None Reported Past Surgical History: Back Surgery Additional Past Surgical History / Comment(s): Knee surgery/ Laminectomy, LEFT SHOULDER REPAIR Past Anesthesia/Blood Transfusion Reactions: Previous Problems w/ Anesthesia Additional Past Anesthesia/Blood Transfusion Reaction / Comment(s): AFTER BACK SURGERY HAD PROBLEM WITH MOOD Smoking Status: Former smoker - Past Family History Mother Family Medical History: Cancer Additional Family Medical History / Comment(s): Pancreatic cancer. General Exam Limitations: no limitations General appearance: alert, in no apparent distress Head exam: Present: atraumatic, normocephalic, normal inspection Respiratory exam: Present: normal lung sounds bilaterally. Absent: respiratory distress, wheezes, rales, rhonchi, stridor Cardiovascular Exam: Present: regular rate, normal rhythm, normal heart sounds. Absent: systolic murmur, diastolic murmur, rubs, gallop, clicks Extremities exam: Present: other (Right AC there is mild erythema, swelling and mild tenderness noted and minimal swelling at the right radial region at the wrist, no axilla tenderness) Skin exam: Present: warm, dry, intact, normal color. Absent: rash Course Vital Signs 11/29/23 06:45 Temperature 97.6 F Pulse Rate 74 Respiratory 16 Rate Blood Pressure 170/101 O2 Sat by Pulse 96 Oximetry Medical Decision Making - Medical Decision Making Was pt. sent in by a medical professional or institution (ANNIE Ramirez, LOGGING SUPERINTENDENT, urgent care, hospital, or [facility]...) When possible be specific @ -No Did you speak to anyone other than the patient for history (EMS, parent, family, police, friend...)? What history was obtained from this source @ -No Did you review nursing and triage notes (agree or disagree)? Why? @ -I reviewed and agree with nursing and triage notes Were old charts reviewed (outside hosp., previous admission, EMS record, old EKG, old radiological studies, urgent care reports/EKG's, [facility] records)? Report findings @ -No old charts were reviewed Differential Diagnosis (chest pain, altered mental status, abdominal pain women, abdominal pain men, vaginal bleeding, weakness, fever, dyspnea, syncope, headache, dizziness, GI bleed, back pain, seizure, CVA, palpatations, mental health, musculoskeletal)? @ -[Cellulitis, DVT, superficial thrombophlebitis EKG interpreted by me (3pts min.). @ -None X-rays interpreted by me (1pt min.). @ -None done CT interpreted by me (1pt min.). @ -None done U/S interpreted by me (1pt. min.). @ -Altered stone right upper extremity venous Doppler shows no evidence of DVT or superficial thrombophlebitis What testing was considered but not performed or refused? (CT, X-rays, U/S, labs)? Why? @ -None What meds were considered but not given or refused? Why? @ -None Did you discuss the management of the patient with other professionals (professionals i.e. , PA, LOGGING SUPERINTENDENT, lab, RT, psych nurse, licensed clinical social worker, personnel quality assurance auditor, teacher, traffic division commanding officer, case loader operator)? Give summary @ -[Discussed ultrasound WITH SENIOR ORACLE ADF DEVELOPER Was smoking cessation discussed for >3mins.? @ -No Was critical care preformed (if so, how long)? @ -No Were there social determinants of health that impacted care today? How? (Homelessness, low income, unemployed, alcoholism, drug addiction, transportation, low edu. Level, literacy, decrease access to med. care, [facility], rehab)? @ -No Was there de-escalation of care discussed even if they declined (Discuss DNR or withdrawal of care, Hospice)? DNR status @ -No What co-morbidities impacted this encounter? (DM, HTN, Smoking, COPD, CAD, Cancer, CVA, ARF, Chemo, Hep., AIDS, mental health diagnosis, sleep apnea, morbid obesity)? @ -None Was patient admitted / discharged? Hospital course, mention meds given and route, prescriptions, significant lab abnormalities, going to OR and other pertinent info. @ -Did charge patient has right AC swelling, erythema ultrasound was negative patient will be treated for cellulitis still question early superficial thrombophlebitis will do warm compresses the area will have close follow-up and return parameters discussed. Undiagnosed new problem with uncertain prognosis? @ -No Drug Therapy requiring intensive monitoring for toxicity (Heparin, Nitro, Insulin, Cardizem)? @ -No Were any procedures done? @ -No Diagnosis/symptom? @ -Cellulitis right arm Acute, or Chronic, or Acute on Chronic? @ -Acute Uncomplicated (without systemic symptoms) or Complicated (systemic symptoms)? @ -Uncomplicated Side effects of treatment? @ -No Exacerbation, Progression, or Severe Exacerbation? @ -No Poses a threat to life or bodily function? How? (Chest pain, [place], [place], pneumonia, PE, COPD, DKA, ARF, appy, cholecystitis, CVA, Diverticulitis, Homicidal, Suicidal, threat to staff... and all critical care pts) @ -No Disposition Clinical Impression: Right arm cellulitis Disposition: HOME SELF-CARE Condition: Stable Instructions (If sedation given, give patient instructions): Cellulitis (ED) Additional Instructions: Please return to the Emergency Department if symptoms worsen or any other concerns. Prescriptions: Cephalexin [Keflex] 500 mg PO Q6HR #40 cap Is patient prescribed a controlled substance at d/c from ED?: No Referrals: None,Stated [Primary Care Provider] - 1-2 days Time of Disposition: 08:22
[2023-11-29 07:15] VITALS: BP 170/101; PULSE 74; RESP 16; TEMP 97.6
--- NOTE | 2023-11-29 07:49 | US ---
EXAMINATION TYPE: US venous doppler duplex UE RT DATE OF EXAM: 11/29/2023 COMPARISON: NONE CLINICAL INDICATION: Male, 73 years old with history of Pain, swelling; Pt states right arm pain s/p heart cath right radial approach SIDE PERFORMED: Right Right Arm: Negative for DVT IMPRESSION: 1. Right upper extremity deep venous ultrasound negative for deep venous thrombosis.
== END 2023-11-29 08:48 | disposition home or self-care (01) ==
LOC: EC 06:39
DX: M79.601 Pain in right arm (principal); L03.113 Cellulitis of right upper limb; Z87.891 Personal history of nicotine dependence
CPT/HCPCS: 99283

== ENCOUNTER → 2024-01-16 | Outpatient (CLI) | payer MEDICARE, OTHER ==
[2024-01-16 10:32] LABS: ALT 29 U/L (10-49); AST 18 U/L (14-35); Chol/HDL Ratio 2.84 Ratio; LDL Cholesterol,Calculated 68.6 mg/dL (0.0-131.0); VLDL Calculation 10.36 mg/dL (5.00-40.00)
== END | disposition home or self-care (01) ==
LOC: LABWHC1 07:41
PROVIDERS: ATTEND Internal Medicine Cardiovascular Disease
DX: E78.2 Mixed hyperlipidemia (principal)
CPT/HCPCS: 36415; 80061; 84450; 84460

== ENCOUNTER → 2024-06-18 | Outpatient (CLI) | payer MEDICARE, OTHER ==
[2024-06-18 10:27] LABS: ALT 19 U/L (10-49); Chol/HDL Ratio 2.43 Ratio; LDL Cholesterol,Calculated 60.4 mg/dL (0.0-131.0); VLDL Calculation 9.14 mg/dL (5.00-40.00)
[2024-06-18 10:28] LABS: AST 20 U/L (14-35)
== END | disposition home or self-care (01) ==
LOC: LABWHC1 07:14
PROVIDERS: ATTEND Internal Medicine Cardiovascular Disease
DX: E78.2 Mixed hyperlipidemia (principal)
CPT/HCPCS: 36415; 80061; 84450; 84460